=== PATIENT | male | born 1965 | race Caucasian/White ===

== ENCOUNTER → 2016-12-06 | Outpatient (REF) | payer BC ==
[~2016-12-06] MED LIST: ASPI1TAB PO; OMEP20CA3 PO; PARO-39 PO; SIMV20TA2 PO; VITA500T3 PO
[2016-12-06 14:43] LABS: FOLATE 8.7 NG/ML; VITAMIN B12 LEVEL 1782 PG/ML
== END ==
LOC: M LABNEURO 13:33
PROVIDERS: ATTEND Psychiatry & Neurology Neurology
DX: G60.9 Hereditary and idiopathic neuropathy, unspecified (principal)

== ENCOUNTER → 2017-01-22 | Outpatient (REF) | payer BC | LOC: M LAB REF 16:34 | PROVIDERS: ATTEND Nurse Practitioner Adult Health | DX: G61.1 Serum neuropathy (principal) ==

== ENCOUNTER → 2017-03-23 | Outpatient (CLI) | payer BC ==
[2017-03-23 18:48] LABS: ALBUMIN 3.9 GM/DL (3.2-5.2); ALBUMIN/GLOBULIN RATIO 1.22 (1.00-1.93); ALKALINE PHOSPHATASE 58 U/L (45-117); ALT/SGPT 80 U/L (12-78); ANION GAP 7 MEQ/L (8-16); AST/SGOT 45 U/L (15-37); BILIRUBIN,TOTAL 1.1 MG/DL (0.2-1.0); BLOOD UREA NITROGEN 12 MG/DL (7-18); CALCIUM LEVEL 8.9 MG/DL (8.5-10.1); CARBON DIOXIDE LEVEL 30 MEQ/L (21-32); CHLORIDE LEVEL 105 MEQ/L (98-107); CREATININE FOR GFR 1.06 MG/DL (0.70-1.30); GLOMERULAR FILTRATION RATE > 60.0 (>56); GLUCOSE, FASTING 91 MG/DL (70-105); POTASSIUM SERUM 4.4 MEQ/L (3.5-5.1); SODIUM LEVEL 142 MEQ/L (136-145); TOTAL PROTEIN 7.1 GM/DL (6.4-8.2)
== END ==
LOC: M WUC 12:11
PROVIDERS: ATTEND Physician Assistant
DX: R73.9 Hyperglycemia, unspecified (principal); R94.5 Abnormal results of liver function studies

== ENCOUNTER → 2017-04-02 | Outpatient (REF) | payer BC ==
[2017-04-02 12:33] LABS: FERRITIN 251 NG/ML (26-388); PERCENT SATURATION 36.9 % (19.7-37.4); TOTAL IRON BINDING CAPACITY 350 UG/DL (250-450)
== END ==
LOC: M SFHCPLAZ 11:03
PROVIDERS: ATTEND Physician Assistant
DX: R94.5 Abnormal results of liver function studies (principal)

== ENCOUNTER → 2017-04-04 | Outpatient (CLI) | payer BC ==
--- NOTE | 2017-04-04 09:47 | REP ---
Right upper quadrant sonography: History: Elevated liver function studies. Comparison study: No comparison study. Findings: Scanning through the right upper quadrant of the abdomen demonstrates a normal sized, thin-walled gallbladder without evidence of stone or polyp. Common bile duct is normal measuring zero point cm in greatest diameter. They are are two cysts in the left lobe adjacent one another 3.1 x 2.3 x 1.9 cm with a 1.3 cm cyst adjacent to this. No other focal liver lesion is seen. Liver size is normal. No pancreatic abnormality is observed. No right renal abnormality is seen. There is no evidence of ascites. The right kidney measures of the 11.0 x 6.0 x 4.7 cm. Impression: Small simple cysts in the left lobe of the liver, otherwise negative right upper quadrant sonography. Signed by Cesar Adams MD 04/04/2017 09:38 A
== END ==
LOC: M WHC 07:59
PROVIDERS: ATTEND Physician Assistant
DX: R94.5 Abnormal results of liver function studies (principal)

== ENCOUNTER 2017-08-28 16:11 | Emergency (ER) | payer BC ==
[~2017-08-28] VITALS: Ht 175.3 cm; Wt 100.0 kg
[~2017-08-28 16:11] MED LIST changes: -PARO-39 PO; +PARO20TA4 PO
[2017-08-28] MEDS ORDERED: NS 1,000 ML IV SCH (16:51)
[2017-08-28] MEDS ORDERED: ONDANSETRON 4MG/2ML VIAL (J2405) IV ONE (17:00)
[2017-08-28] MEDS ORDERED: MORPHINE 2 MG/ML 1ML SYRINGE IV PRN (17:00)
[2017-08-28 17:15] LABS: BASO # 0.1 10^3/uL (0.0-0.2); BASO % 0.5 % (0.0-1.0); EOS # 0.5 10^3/uL (0.0-0.50); EOS % 4.1 % (0.0-3.0); IMMATURE GRANULOCYTE % 0.5 % (0-0); LYMPH # 2.9 10^3/uL (1.5-4.5); LYMPH % 26.5 % (24.0-44.0); MEAN CORPUSCULAR HEMOGLOBIN 30.2 pg (27.0-33.0); MEAN CORPUSCULAR HGB CONC 33.6 g/dl (32.0-36.5); MEAN CORPUSCULAR VOLUME 89.9 fl (80.0-96.0); MONO # 0.7 10^3/uL (0.0-0.8); MONO % 6.7 % (0.0-5.0); NEUTROPHILS # 6.8 10^3/uL (1.8-7.7); NEUTROPHILS % 61.7 % (36.0-66.0); PLATELET COUNT, AUTOMATED 214 10^3/uL (150-450); RED CELL DISTRIBUTION WIDTH 12.9 % (11.5-14.5)
[2017-08-28 17:42] LABS: ALBUMIN 3.5 GM/DL (3.2-5.2); ALBUMIN/GLOBULIN RATIO 0.97 (1.00-1.93); ALKALINE PHOSPHATASE 56 U/L (45-117); ALT/SGPT 58 U/L (12-78); ANION GAP 4 MEQ/L (8-16); AST/SGOT 32 U/L (15-37); BILIRUBIN,DIRECT 0.2 MG/DL (0.0-0.2); BILIRUBIN,TOTAL 0.8 MG/DL (0.2-1.0); BLOOD UREA NITROGEN 12 MG/DL (7-18); CALCIUM LEVEL 8.5 MG/DL (8.5-10.1); CARBON DIOXIDE LEVEL 29 MEQ/L (21-32); CHLORIDE LEVEL 107 MEQ/L (98-107); CREATININE FOR GFR 0.84 MG/DL (0.70-1.30); GLOMERULAR FILTRATION RATE > 60.0 (>56); GLUCOSE, FASTING 102 MG/DL (70-105); POTASSIUM SERUM 3.8 MEQ/L (3.5-5.1); SODIUM LEVEL 140 MEQ/L (136-145); TOTAL PROTEIN 7.1 GM/DL (6.4-8.2)
--- NOTE | 2017-08-28 18:22 | REP ---
REASON FOR EXAM: Left sided pain. PRIORS: Right upper quadrant ultrasound of 04/04/2017 showed a liver cyst. Emphysematous changes are seen throughout the lung bases. There are no pleural or pericardial effusions. Limited evaluation of the solid intraabdominal organs and gallbladder show no gross abnormalities. Note is made of a simple cyst in the lateral segment of the left lobe of the liver. Limited evaluation of the pancreas shows thickening of the left lateroconal fascia and thickening of Zuckerkandl fascia on the left along with fatty infiltration around the tail of the pancreas and the left anterior pararenal space. There is no nephroureterolithiasis, hydronephrosis, or hydroureter. Arising from the inferior pole of the left kidney there is a 6.4 cm sized low density structure which has water Hounsfield unit readings and shows no evidence of septations or mural nodules and consistent with a simple cyst. Limited evaluation of the abdominal aorta and paraaortic regions show no gross abnormality. There is no evidence of free fluid of free air in the abdomen. CT PELVIS: The bowel loops and their mesenteries are within normal limits. There is no pelvic mass or adenopathy. There is no evidence of free pelvic fluid or air. Bone window technique throughout the examination shows the osseous structures to be within normal limits for the patients age. IMPRESSION: 1. There is evidence of pancreatitis involving the tail of the pancreas with related findings as described above. 2. Simple left renal cyst. 3. Simple liver cyst. 4. Lung bases show emphysematous changes. Signed by Cody Shannon DO 08/28/2017 07:54 P
[2017-08-28 18:26] VITALS: BP 140/76
[2017-08-28] MEDS ORDERED: ZOFR4TAB3 PO (18:31)
[2017-08-28] MEDS ORDERED: PERC5TAB12 PO (18:31)
--- NOTE | 2017-08-29 07:40 | ECGEPIP ---
Stationary ECG Study [facility] - ED Test Date: 2017-08-28 Pat Name: RON KRAUS Department: Room: - Gender: M [employer]st: ct : 1965 Requested By: PEDRO LUIS MARTINEZ PA-C. Order Number: [id number] Reading MD: Kelly Linares Measurements Intervals Jenison Rate: 59 P: 20 WY: 137 QRS: 0 QRSD: 109 T: 24 QT: 435 QTc: 434 Interpretive Statements SINUS BRADYCARDIA NO PRIOR FOR COMPARISON Electronically Signed On 08-29-2017 7:40:46 EDT by Kelly Linares
== END 2017-08-28 18:46 | disposition home or self-care (01) ==
LOC: M ED 16:11
DX: K85.90 Acute pancreatitis without necrosis or infection, unspecified (principal); I51.9 Heart disease, unspecified; E78.5 Hyperlipidemia, unspecified; K21.9 Gastro-esophageal reflux disease without esophagitis; Z79.899 Other long term (current) drug therapy; Z79.82 Long term (current) use of aspirin; Z87.891 Personal history of nicotine dependence
CPT/HCPCS: 74176; 80048; 80076; 82550; 82553; 83690; 85025; 93005; 93041; 96361; 96374; 96375; 99284; J2405

== ENCOUNTER → 2017-10-31 | Outpatient (CLI) | payer BC ==
[~2017-10-31] MED LIST changes: +PERC5TAB12 PO; +ZOFR4TAB3 PO
[2017-10-31 13:42] LABS: BASO # 0.1 10^3/uL (0.0-0.2); BASO % 0.6 % (0.0-1.0); EOS # 0.6 10^3/uL (0.0-0.50); EOS % 5.8 % (0.0-3.0); IMMATURE GRANULOCYTE % 0.4 % (0-0); LYMPH # 3.8 10^3/uL (1.5-4.5); LYMPH % 36.8 % (24.0-44.0); MEAN CORPUSCULAR HEMOGLOBIN 30.1 pg (27.0-33.0); MEAN CORPUSCULAR HGB CONC 32.9 g/dl (32.0-36.5); MEAN CORPUSCULAR VOLUME 91.3 fl (80.0-96.0); MONO # 0.7 10^3/uL (0.0-0.8); MONO % 6.3 % (0.0-5.0); NEUTROPHILS # 5.2 10^3/uL (1.8-7.7); NEUTROPHILS % 50.1 % (36.0-66.0); PLATELET COUNT, AUTOMATED 258 10^3/uL (150-450); RED CELL DISTRIBUTION WIDTH 12.9 % (11.5-14.5); WHITE BLOOD COUNT 10.3 10^3/uL (4.0-10.0)
[2017-10-31 14:02] LABS: ALBUMIN 4.1 GM/DL (3.2-5.2); ALBUMIN/GLOBULIN RATIO 1.21 (1.00-1.93); ALKALINE PHOSPHATASE 78 U/L (45-117); ALT/SGPT 59 U/L (12-78); ANION GAP 7 MEQ/L (8-16); AST/SGOT 30 U/L (7-37); BILIRUBIN,TOTAL 0.6 MG/DL (0.2-1.0); BLOOD UREA NITROGEN 15 MG/DL (7-18); CALCIUM LEVEL 9.3 MG/DL (8.5-10.1); CARBON DIOXIDE LEVEL 30 MEQ/L (21-32); CHLORIDE LEVEL 104 MEQ/L (98-107); CREATININE FOR GFR 1.12 MG/DL (0.70-1.30); GLOMERULAR FILTRATION RATE > 60.0 (>56); GLUCOSE, FASTING 115 MG/DL (70-105); PERCENT SATURATION 24.5 % (19.7-50.0); POTASSIUM SERUM 4.6 MEQ/L (3.5-5.1); SODIUM LEVEL 141 MEQ/L (136-145); TOTAL IRON BINDING CAPACITY 326 UG/DL (250-450); TOTAL PROTEIN 7.5 GM/DL (6.4-8.2)
== END ==
LOC: M WUC 10:50
PROVIDERS: ATTEND Physician Assistant
DX: K64.9 Unspecified hemorrhoids (principal)

== ENCOUNTER → 2017-11-19 | Outpatient (REF) | payer BC ==
[2017-11-19 17:19] LABS: FERRITIN 313 NG/ML (26-388); IRON (FE) 54 UG/DL (65-175); PERCENT SATURATION 18.1 % (19.7-50.0); TOTAL IRON BINDING CAPACITY 298 UG/DL (250-450)
[2017-11-21 09:19] LABS: ALPHA FETOPROTEIN TUMOR QUANT 3.8 NG/ML (<8.1)
[2017-11-21 09:20] LABS: HEPATITIS B SURFACE ANTIBODY NEGATIVE (POSITIVE)
[2017-11-21 09:57] LABS: HEP C VIRUS AB SCREEN MEDICARE 0.1 INDEX (<0.8)
[2017-11-25 08:10] LABS: ANTI-MITOCHONDRIAL ANTIBODY 40.4 Units (0.0-20.0); ANTINUCLEAR ANTIBODIES DIRECT Negative (Negative); CERULOPLASMIN 22.5 mg/dL (16.0-31.0); HEPATITIS A IgG TOTAL Negative (Negative); HEPATITIS B CORE ANTIBODY IGG Negative (Negative); IgA SERUM (part of Subclasses) 252 mg/dL (90-386); LIVER-KIDNEY MICROSOMAL ABY 1.9 Units (0.0-20.0); TISSUE TRANSGLUTAMINASE IgA <2 U/mL (0-3)
[2017-11-25 08:10] LABS: ANTI-SMOOTH MUSCLE ANTIBODY 19 Units (0-19)
== END ==
LOC: M LABDRAW1 15:14
DX: R93.3 Abnormal findings on diagnostic imaging of other parts of digestive tract (principal)
CPT/HCPCS: 83550

== ENCOUNTER → 2017-12-25 | Outpatient (CLI) | payer BC ==
[2017-12-25 21:07] LABS: ALBUMIN/GLOBULIN RATIO 1.18 (1.00-1.93); ALKALINE PHOSPHATASE 70 U/L (45-117); ALT/SGPT 78 U/L (12-78); ANION GAP 8 MEQ/L (8-16); AST/SGOT 35 U/L (7-37); BILIRUBIN,TOTAL 0.6 MG/DL (0.2-1.0); BLOOD UREA NITROGEN 12 MG/DL (7-18); CALCIUM LEVEL 8.8 MG/DL (8.5-10.1); CARBON DIOXIDE LEVEL 31 MEQ/L (21-32); CHLORIDE LEVEL 103 MEQ/L (98-107); CREATININE FOR GFR 0.97 MG/DL (0.70-1.30); GLOMERULAR FILTRATION RATE > 60.0 (>56); GLUCOSE, FASTING 104 MG/DL (70-100); POTASSIUM SERUM 4.4 MEQ/L (3.5-5.1); SODIUM LEVEL 142 MEQ/L (136-145); TOTAL PROTEIN 7.4 GM/DL (6.4-8.2)
== END ==
LOC: M WUC 15:58
DX: R94.5 Abnormal results of liver function studies (principal)
CPT/HCPCS: 80053

== ENCOUNTER → 2017-12-29 | Outpatient (REF) | payer BC ==
[2017-12-29 13:48] LABS: BASO % 0.4 % (0.0-1.0); EOS # 0.4 10^3/uL (0.0-0.50); EOS % 4.1 % (0.0-3.0); HEMATOCRIT 41.6 % (42.0-52.0); HEMOGLOBIN 13.9 g/dl (14.0-18.0); IMMATURE GRANULOCYTE % 0.2 % (0-3.0); LYMPH # 3.8 10^3/uL (1.5-4.5); LYMPH % 41.8 % (24.0-44.0); MEAN CORPUSCULAR HEMOGLOBIN 30.1 pg (27.0-33.0); MEAN CORPUSCULAR HGB CONC 33.4 g/dl (32.0-36.5); MONO # 0.6 10^3/uL (0.0-0.8); MONO % 6.2 % (0.0-5.0); NEUTROPHILS # 4.3 10^3/uL (1.8-7.7); NEUTROPHILS % 47.3 % (36.0-66.0); PLATELET COUNT, AUTOMATED 264 10^3/uL (150-450); RED BLOOD COUNT 4.62 10^6/uL (4.30-6.10); WHITE BLOOD COUNT 9.1 10^3/uL (4.0-10.0)
[2017-12-31 14:13] LABS: ANTI CENTROMERE ANTIBODY <0.2 AI (0.0-0.9); ANTI DOUBLE STRAND-DNA AB 1 IU/mL (0-9); ANTI-SINGLE STRAND DNA Ab IgG 32 EU (0-19)
== END ==
LOC: M SFHCPLAZ 10:58
DX: R76.8 Other specified abnormal immunological findings in serum (principal); K21.9 Gastro-esophageal reflux disease without esophagitis
CPT/HCPCS: 86255

== ENCOUNTER → 2018-01-02 | Outpatient (CLI) | payer BC | LOC: M RAD 08:00 | DX: R76.8 Other specified abnormal immunological findings in serum (principal); K76.0 Fatty (change of) liver, not elsewhere classified; K76.89 Other specified diseases of liver | CPT/HCPCS: 76705 ==

== ENCOUNTER → 2018-01-28 | Outpatient (REF) | payer BC | LOC: M LAB REF 16:28 | DX: L02.01 Cutaneous abscess of face (principal) | CPT/HCPCS: 87070; 87186 ==

== ENCOUNTER → 2018-05-29 | Outpatient (CLI) | payer BC ==
[2018-05-29 19:36] LABS: PSA SCREENING 1.74 NG/ML (< 4.0)
== END ==
LOC: M WUC 17:11
DX: Z12.5 Encounter for screening for malignant neoplasm of prostate (principal)
CPT/HCPCS: G0103

== ENCOUNTER → 2018-11-25 | Outpatient (REF) | payer BC ==
[~2018-11-25] MED LIST changes: +DULO1CAP PO; +ZOFR4TAB14 PO; -ZOFR4TAB3 PO
[2018-11-25 20:08] LABS: INFLUENZA A AMPLIFICATION NEGATIVE (NEGATIVE); INFLUENZA B AMPLIFICATION NEGATIVE (NEGATIVE)
== END ==
LOC: M LAB REF 10:00
PROVIDERS: ATTEND Physician Assistant
DX: Z11.59 Encounter for screening for other viral diseases (principal)

== ENCOUNTER → 2019-03-28 | Outpatient (CLI) | payer BC ==
[~2019-03-28] MED LIST changes: -ASPI1TAB PO; +ASPI81TA26 PO
[2019-03-28 18:06] LABS: ALBUMIN 3.9 GM/DL (3.2-5.2); ALT/SGPT 53 U/L (12-78); BILIRUBIN,TOTAL 0.6 MG/DL (0.2-1.0); BLOOD UREA NITROGEN 19 MG/DL (7-18); CARBON DIOXIDE LEVEL 28 MEQ/L (21-32); CHLORIDE LEVEL 107 MEQ/L (98-107); CHOLESTEROL LEVEL 180 MG/DL (<200); CHOLESTEROL RISK RATIO 3.529 (<5); CREATININE FOR GFR 0.98 MG/DL (0.70-1.30); GLOMERULAR FILTRATION RATE > 60.0 (>56); GLUCOSE, FASTING 113 MG/DL (70-100); HDL CHOLESTEROL 51 MG/DL (>40); LDL CHOLESTEROL 99 MG/DL (<100); NON-HDL-C 129 MG/DL; POTASSIUM SERUM 4.7 MEQ/L (3.5-5.1); SODIUM LEVEL 142 MEQ/L (136-145); TOTAL PROTEIN 7.3 GM/DL (6.4-8.2); TRIGLYCERIDES LEVEL 151 MG/DL (<150)
== END ==
LOC: M WUC 08:08
PROVIDERS: ATTEND Internal Medicine
DX: E78.5 Hyperlipidemia, unspecified (principal); R74.0 Nonspecific elevation of levels of transaminase and lactic acid dehydrogenase [LDH]; R73.01 Impaired fasting glucose

== ENCOUNTER → 2019-06-09 | Outpatient (CLI) | payer BC ==
[~2019-06-09] MED LIST changes: +CYAN500T8 PO; -DULO1CAP PO; +DULO1CAP4 PO; -OMEP20CA3 PO; +OMEP20CA4 PO; -VITA500T3 PO
== END ==
LOC: M WUC 14:40
PROVIDERS: ATTEND Nurse Practitioner Family
DX: R97.20 Elevated prostate specific antigen [PSA] (principal)

== ENCOUNTER → 2019-10-05 | Outpatient (CLI) | payer BC ==
[2019-10-05 10:16] LABS: HEMOGLOBIN A1c 6.2 %
[2019-10-05 10:35] LABS: ALT/SGPT 37 U/L (12-78); BILIRUBIN,TOTAL 0.7 MG/DL (0.2-1.0); BLOOD UREA NITROGEN 15 MG/DL (7-18); CALCIUM LEVEL 9.3 MG/DL (8.5-10.1); CARBON DIOXIDE LEVEL 32 MEQ/L (21-32); CHLORIDE LEVEL 105 MEQ/L (98-107); CHOLESTEROL LEVEL 181 MG/DL (<200); CHOLESTEROL RISK RATIO 3.016 (<5); CREATININE FOR GFR 1.09 MG/DL (0.70-1.30); GLOMERULAR FILTRATION RATE > 60.0 (>56); GLUCOSE, FASTING 107 MG/DL (70-100); HDL CHOLESTEROL 60 MG/DL (>40); LDL CHOLESTEROL 96 MG/DL (<100); NON-HDL-C 121 MG/DL; SODIUM LEVEL 141 MEQ/L (136-145); TOTAL PROTEIN 7.2 GM/DL (6.4-8.2); TRIGLYCERIDES LEVEL 126 MG/DL (<150)
== END ==
LOC: M WUC 08:15
PROVIDERS: ATTEND Internal Medicine
DX: E78.5 Hyperlipidemia, unspecified (principal); R74.0 Nonspecific elevation of levels of transaminase and lactic acid dehydrogenase [LDH]; R73.01 Impaired fasting glucose

== ENCOUNTER → 2020-06-07 | Outpatient (CLI) | payer BC ==
[~2020-06-07] MED LIST changes: +OMEP1CAP73 PO; -OMEP20CA4 PO; -SIMV20TA2 PO; +SIMV20TA22 PO
== END ==
LOC: M WUC 14:50
PROVIDERS: ATTEND Nurse Practitioner Family
DX: R97.20 Elevated prostate specific antigen [PSA] (principal)

== ENCOUNTER → 2020-10-04 | Outpatient (CLI) | payer BC ==
[2020-10-04 10:15] LABS: ALBUMIN 4.1 GM/DL (3.2-5.2); ALT/SGPT 59 U/L (12-78); BILIRUBIN,TOTAL 1.2 MG/DL (0.2-1.0); BLOOD UREA NITROGEN 13 MG/DL (7-18); CALCIUM LEVEL 9.2 MG/DL (8.5-10.1); CARBON DIOXIDE LEVEL 32 MEQ/L (21-32); CHLORIDE LEVEL 103 MEQ/L (98-107); CHOLESTEROL LEVEL 183 MG/DL (<200); CHOLESTEROL RISK RATIO 3.519 (<5); CREATININE FOR GFR 1.05 MG/DL (0.70-1.30); GLOMERULAR FILTRATION RATE > 60.0 (>56); GLUCOSE, FASTING 98 MG/DL (70-100); HDL CHOLESTEROL 52 MG/DL (>40); LDL CHOLESTEROL 95 MG/DL (<100); NON-HDL-C 131 MG/DL; POTASSIUM SERUM 4.9 MEQ/L (3.5-5.1); SODIUM LEVEL 140 MEQ/L (136-145); TOTAL PROTEIN 7.4 GM/DL (6.4-8.2); TRIGLYCERIDES LEVEL 180 MG/DL (<150); URIC ACID 6.2 MG/DL (3.5-7.2)
[2020-10-04 11:03] LABS: HEMOGLOBIN A1c 5.7 %
== END ==
LOC: M WUC 08:03
PROVIDERS: ATTEND Internal Medicine
DX: E78.5 Hyperlipidemia, unspecified (principal); R73.01 Impaired fasting glucose; M10.9 Gout, unspecified

== ENCOUNTER → 2021-04-19 | Outpatient (CLI) | payer BC ==
[~2021-04-19] MED LIST changes: +CYAN500T14 PO; -CYAN500T8 PO
[2021-04-19 12:50] LABS: ALBUMIN 3.9 GM/DL (3.2-5.2); ALT/SGPT 75 U/L (12-78); BILIRUBIN,TOTAL 0.9 MG/DL (0.2-1.0); BLOOD UREA NITROGEN 11 MG/DL (7-18); CALCIUM LEVEL 9.6 MG/DL (8.5-10.1); CARBON DIOXIDE LEVEL 29 MEQ/L (21-32); CHLORIDE LEVEL 104 MEQ/L (98-107); CHOLESTEROL LEVEL 162 MG/DL (<200); CREATININE FOR GFR 0.96 MG/DL (0.70-1.30); GLOMERULAR FILTRATION RATE > 60.0 (>56); GLUCOSE, FASTING 114 MG/DL (70-100); HDL CHOLESTEROL 54 MG/DL (>40); LDL CHOLESTEROL 79 MG/DL (<100); NON-HDL-C 108 MG/DL; POTASSIUM SERUM 4.6 MEQ/L (3.5-5.1); SODIUM LEVEL 138 MEQ/L (136-145); TOTAL PROTEIN 7.1 GM/DL (6.4-8.2); TRIGLYCERIDES LEVEL 143 MG/DL (<150)
== END ==
LOC: M WUC 08:09
PROVIDERS: ATTEND Internal Medicine
DX: E78.5 Hyperlipidemia, unspecified (principal)

== ENCOUNTER → 2021-08-29 | Outpatient (CLI) | payer BC | LOC: M WUC 09:07 | PROVIDERS: ATTEND Nurse Practitioner Family | DX: Z12.5 Encounter for screening for malignant neoplasm of prostate (principal) ==

== ENCOUNTER → 2021-11-01 | Outpatient (CLI) | payer BC ==
[2021-11-01 10:23] LABS: ALBUMIN 3.9 GM/DL (3.2-5.2); ALT/SGPT 43 U/L (12-78); BILIRUBIN,TOTAL 0.9 MG/DL (0.2-1.0); BLOOD UREA NITROGEN 14 MG/DL (7-18); CALCIUM LEVEL 9.5 MG/DL (8.5-10.1); CARBON DIOXIDE LEVEL 33 MEQ/L (21-32); CHLORIDE LEVEL 104 MEQ/L (98-107); CHOLESTEROL LEVEL 184 MG/DL (<200); CHOLESTEROL RISK RATIO 3.471 (<5); CREATININE FOR GFR 0.99 MG/DL (0.70-1.30); GLOMERULAR FILTRATION RATE > 60.0 (>56); GLUCOSE, FASTING 113 MG/DL (70-100); HDL CHOLESTEROL 53 MG/DL (>40); LDL CHOLESTEROL 101 MG/DL (<100); NON-HDL-C 131 MG/DL; POTASSIUM SERUM 4.6 MEQ/L (3.5-5.1); SODIUM LEVEL 141 MEQ/L (136-145); TOTAL PROTEIN 7.5 GM/DL (6.4-8.2); TRIGLYCERIDES LEVEL 151 MG/DL (<150)
== END ==
LOC: M WUC 07:55
PROVIDERS: ATTEND Internal Medicine
DX: E78.5 Hyperlipidemia, unspecified (principal)

== ENCOUNTER 2022-04-07 18:11 | Emergency (ER) | payer BC ==
[~2022-04-07] VITALS: Ht 177.8 cm; Wt 110.0 kg
[2022-04-07] MEDS ORDERED: IBUPROFEN 800 MG TAB PO ONE (19:00)
[2022-04-07 19:52] VITALS: BP 129/62
== END 2022-04-07 19:52 | disposition home or self-care (01) ==
LOC: M ED 18:11
DX: M19.012 Primary osteoarthritis, left shoulder (principal); M75.52 Bursitis of left shoulder; E78.5 Hyperlipidemia, unspecified; F33.9 Major depressive disorder, recurrent, unspecified; F41.9 Anxiety disorder, unspecified; G47.33 Obstructive sleep apnea (adult) (pediatric); K21.9 Gastro-esophageal reflux disease without esophagitis; N42.9 Disorder of prostate, unspecified; Z99.89 Dependence on other enabling machines and devices; Z79.899 Other long term (current) drug therapy

== ENCOUNTER → 2022-04-17 | Outpatient (CLI) | payer BC | LOC: M SOG 11:01 | PROVIDERS: ATTEND Orthopaedic Surgery | DX: M79.622 Pain in left upper arm (principal) ==

== ENCOUNTER → 2022-04-30 | Outpatient (CLI) | payer BC | LOC: M WUC 11:33 | PROVIDERS: ATTEND Internal Medicine | DX: M25.512 Pain in left shoulder (principal) ==

== ENCOUNTER → 2022-09-26 | Outpatient (CLI) | payer BC | LOC: M WUC 10:05 | PROVIDERS: ATTEND Nurse Practitioner Family | DX: Z12.5 Encounter for screening for malignant neoplasm of prostate (principal) ==

== ENCOUNTER → 2022-11-29 | Outpatient (CLI) | payer BC ==
[2022-11-29 10:51] LABS: ALBUMIN 4.1 G/DL (3.2-5.2); ALKALINE PHOSPHATASE 55 U/L (46-116); ALT/SGPT 34 U/L (7.0-40); AST/SGOT 23 U/L (<34); BILIRUBIN,TOTAL 1.1 MG/DL (0.3-1.2); BLOOD UREA NITROGEN 16 MG/DL (9-23); CALCIUM LEVEL 9.8 MG/DL (8.5-10.1); CARBON DIOXIDE LEVEL 32 MMOL/L (20-31); CHLORIDE LEVEL 103 MMOL/L (98-107); CHOLESTEROL LEVEL 183 MG/DL (<200); CHOLESTEROL RISK RATIO 3.66 (<5); CREATININE FOR GFR 1.02 MG/DL (0.70-1.30); GLOMERULAR FILTRATION RATE > 60.0 (>56); GLUCOSE, FASTING 102 MG/DL (60-100); LDL CHOLESTEROL 100.2 MG/DL (<100); NON-HDL-C 133 MG/DL; POTASSIUM SERUM 4.7 MMOL/L (3.5-5.1); SODIUM LEVEL 139 MMOL/L (136-145); TOTAL PROTEIN 7.1 G/DL (5.7-8.2); TRIGLYCERIDES LEVEL 164 MG/DL (<150)
== END ==
LOC: M WUC 08:18
PROVIDERS: ATTEND Internal Medicine
DX: E78.5 Hyperlipidemia, unspecified (principal); R73.01 Impaired fasting glucose

== ENCOUNTER → 2023-06-02 | Outpatient (CLI) | payer BC ==
[2023-06-02 11:52] LABS: ALBUMIN 4.1 G/DL (3.2-5.2); ALKALINE PHOSPHATASE 49 U/L (46-116); ALT/SGPT 33 U/L (7.0-40); AST/SGOT 19 U/L (<34); BILIRUBIN,TOTAL 1.5 MG/DL (0.3-1.2); BLOOD UREA NITROGEN 13 MG/DL (9-23); CALCIUM LEVEL 9.1 MG/DL (8.3-10.6); CARBON DIOXIDE LEVEL 29 MMOL/L (20-31); CHLORIDE LEVEL 101 MMOL/L (98-107); CHOLESTEROL LEVEL 158 MG/DL (<200); CHOLESTEROL RISK RATIO 2.99 (<5); CREATININE FOR GFR 0.89 MG/DL (0.70-1.30); GLOMERULAR FILTRATION RATE > 60.0 (>49); GLUCOSE, FASTING 116 MG/DL (74-106); HDL CHOLESTEROL 52.8 MG/DL (>40); LDL CHOLESTEROL 71.6 MG/DL (<100); NON-HDL-C 105.2 MG/DL; POTASSIUM SERUM 4.5 MMOL/L (3.5-5.1); SODIUM LEVEL 140 MMOL/L (136-145); TRIGLYCERIDES LEVEL 168 MG/DL (<150)
== END ==
LOC: M WUC 08:41
PROVIDERS: ATTEND Internal Medicine
DX: E78.5 Hyperlipidemia, unspecified (principal); R73.01 Impaired fasting glucose

== ENCOUNTER → 2023-09-22 | Outpatient (CLI) | payer BC ==
[2023-09-22 13:03] LABS: HEMOGLOBIN 14.5 g/dl (13.5-17.5); MEAN CORPUSCULAR HEMOGLOBIN 29.8 pg (27.0-33.0); MEAN CORPUSCULAR HGB CONC 32.2 g/dl (32.0-36.5); MEAN CORPUSCULAR VOLUME 92.4 fl (80.0-96.0); PLATELET COUNT, AUTOMATED 258 10^3/uL (150-450); RED BLOOD COUNT 4.87 10^6/uL (4.30-6.10)
[2023-09-22 13:11] LABS: LIPASE 25 U/L (12-53)
[2023-09-22 13:12] LABS: AMYLASE 49 U/L (30-118)
[2023-09-22 13:13] LABS: ALKALINE PHOSPHATASE 56 U/L (46-116); ALT/SGPT 33 U/L (7.0-40); AST/SGOT 20 U/L (<34); BILIRUBIN,TOTAL 0.8 MG/DL (0.3-1.2); BLOOD UREA NITROGEN 17 MG/DL (9-23); CALCIUM LEVEL 9.4 MG/DL (8.3-10.6); CARBON DIOXIDE LEVEL 30 MMOL/L (20-31); CHLORIDE LEVEL 103 MMOL/L (98-107); CREATININE FOR GFR 0.85 MG/DL (0.70-1.30); GLOMERULAR FILTRATION RATE > 60.0 (>49); GLUCOSE, FASTING 101 MG/DL (74-106); POTASSIUM SERUM 4.8 MMOL/L (3.5-5.1); SODIUM LEVEL 140 MMOL/L (136-145); TOTAL PROTEIN 7.3 G/DL (5.7-8.2)
== END ==
LOC: M WUC 09:15
PROVIDERS: ATTEND Internal Medicine
DX: R10.13 Epigastric pain (principal); M54.9 Dorsalgia, unspecified

== ENCOUNTER → 2023-10-01 | Outpatient (CLI) | payer BC | LOC: M WUC 15:11 | PROVIDERS: ATTEND Internal Medicine | DX: M47.814 Spondylosis without myelopathy or radiculopathy, thoracic region (principal) ==

== ENCOUNTER → 2023-10-21 | Outpatient (REF) | payer BC | LOC: M LABWUC 16:41 | PROVIDERS: ATTEND Nurse Practitioner Family | DX: Z12.5 Encounter for screening for malignant neoplasm of prostate (principal) ==

== ENCOUNTER → 2023-10-28 | Outpatient (REF) | payer BC ==
[2023-10-28 16:44] LABS: BLOOD UREA NITROGEN 14 MG/DL (9-23); CALCIUM LEVEL 9.3 MG/DL (8.3-10.6); CARBON DIOXIDE LEVEL 31 MMOL/L (20-31); CHLORIDE LEVEL 101 MMOL/L (98-107); CREATININE FOR GFR 0.85 MG/DL (0.70-1.30); GLOMERULAR FILTRATION RATE > 60.0 (>49); GLUCOSE, FASTING 114 MG/DL (74-106); POTASSIUM SERUM 4.4 MMOL/L (3.5-5.1); SODIUM LEVEL 139 MMOL/L (136-145)
== END ==
LOC: M LABWUC 16:13
PROVIDERS: ATTEND Nurse Practitioner Family
DX: R31.21 Asymptomatic microscopic hematuria (principal)

== ENCOUNTER 2023-12-16 17:47 | Emergency (ER) | payer BC ==
[~2023-12-16] VITALS: Ht 177.8 cm; Wt 107.6 kg
[2023-12-16] MEDS ORDERED: SODIUM CHLORIDE 0.9% INJ 10 ML SYR IV PRN (19:50)
[2023-12-16 20:25] LABS: BASO % 0.1 % (0.0-1.0); HEMATOCRIT 42.8 % (42.0-52.0); HEMOGLOBIN 14.1 g/dl (13.5-17.5); LYMPH # 0.8 10^3/uL (1.5-5.0); LYMPH % 8.6 % (24.0-44.0); MEAN CORPUSCULAR HEMOGLOBIN 30.2 pg (27.0-33.0); MEAN CORPUSCULAR HGB CONC 32.9 g/dl (32.0-36.5); MEAN CORPUSCULAR VOLUME 91.6 fl (80.0-96.0); MONO # 0.1 10^3/uL (0.0-0.8); MONO % 0.7 % (2.0-8.0); NEUTROPHILS # 7.9 10^3/uL (1.5-8.5); NEUTROPHILS % 90.3 % (36.0-66.0); PLATELET COUNT, AUTOMATED 232 10^3/uL (150-450); RED BLOOD COUNT 4.67 10^6/uL (4.30-6.10); WHITE BLOOD COUNT 8.8 10^3/uL (4.0-10.0)
[2023-12-16 20:38] LABS: INR 1.07; PROTHROMBIN TIME 13.6 SECONDS (12.5-14.5)
[2023-12-16 20:49] LABS: LIPASE 42 U/L (12-53)
[2023-12-16 20:51] LABS: ALKALINE PHOSPHATASE 51 U/L (46-116); ALT/SGPT 53 U/L (7.0-40); AST/SGOT 35 U/L (<34); BILIRUBIN,DIRECT 0.3 MG/DL (<0.4); BILIRUBIN,TOTAL 0.9 MG/DL (0.3-1.2); BLOOD UREA NITROGEN 16 MG/DL (9-23); CALCIUM LEVEL 9.5 MG/DL (8.3-10.6); CARBON DIOXIDE LEVEL 27 MMOL/L (20-31); CHLORIDE LEVEL 103 MMOL/L (98-107); CREATININE FOR GFR 0.77 MG/DL (0.70-1.30); GLOMERULAR FILTRATION RATE > 60.0 (>49); GLUCOSE, FASTING 145 MG/DL (74-106); POTASSIUM SERUM 4.4 MMOL/L (3.5-5.1); SODIUM LEVEL 136 MMOL/L (136-145); TOTAL PROTEIN 7.5 G/DL (5.7-8.2)
[2023-12-16] MEDS ORDERED: NS 500 ML IV ONE (21:15)
[2023-12-16] MEDS ORDERED: AUGM12TA11 PO (23:49)
[2023-12-17 00:14] VITALS: BP 155/94; TEMP 97.6; O2SAT 97
== END 2023-12-17 00:24 | disposition home or self-care (01) ==
LOC: M ED 17:47
DX: K57.92 Diverticulitis of intestine, part unspecified, without perforation or abscess without bleeding (principal); K64.8 Other hemorrhoids; C25.1 Malignant neoplasm of body of pancreas; R00.0 Tachycardia, unspecified; I10 Essential (primary) hypertension; F17.210 Nicotine dependence, cigarettes, uncomplicated; F10.10 Alcohol abuse, uncomplicated; Z79.2 Long term (current) use of antibiotics; Z79.899 Other long term (current) drug therapy

== ENCOUNTER → 2023-12-19 | Outpatient (CLI) | payer BC ==
[~2023-12-19] MED LIST changes: +AUGM12TA11 PO
[2023-12-19 15:29] LABS: BASO % 0.1 % (0.0-1.0); EOS % 0.2 % (0.0-3.0); HEMOGLOBIN 14.2 g/dl (13.5-17.5); LYMPH # 2.9 10^3/uL (1.5-5.0); LYMPH % 27.8 % (24.0-44.0); MEAN CORPUSCULAR HEMOGLOBIN 30.4 pg (27.0-33.0); MEAN CORPUSCULAR VOLUME 92.1 fl (80.0-96.0); MONO # 0.2 10^3/uL (0.0-0.8); MONO % 1.6 % (2.0-8.0); NEUTROPHILS # 7.3 10^3/uL (1.5-8.5); PLATELET COUNT, AUTOMATED 206 10^3/uL (150-450); RED BLOOD COUNT 4.67 10^6/uL (4.30-6.10); WHITE BLOOD COUNT 10.4 10^3/uL (4.0-10.0)
[2023-12-19 16:21] LABS: ALBUMIN 3.8 G/DL (3.2-5.2); ALKALINE PHOSPHATASE 48 U/L (46-116); ALT/SGPT 63 U/L (7.0-40); AST/SGOT 47 U/L (<34); BILIRUBIN,TOTAL 1.5 MG/DL (0.3-1.2); BLOOD UREA NITROGEN 23 MG/DL (9-23); CA19-9 TUMOR MARKER,CARBOHYDRA 171.1 U/ML (<35.0); CALCIUM LEVEL 9.5 MG/DL (8.3-10.6); CARBON DIOXIDE LEVEL 30 MMOL/L (20-31); CARCINOEMBRYONIC ANTIGEN < 2.0 NG/ML (<2.5); CHLORIDE LEVEL 97 MMOL/L (98-107); CREATININE FOR GFR 0.84 MG/DL (0.70-1.30); GLOMERULAR FILTRATION RATE > 60.0 (>49); GLUCOSE, FASTING 136 MG/DL (74-106); POTASSIUM SERUM 4.3 MMOL/L (3.5-5.1); SODIUM LEVEL 133 MMOL/L (136-145); TOTAL PROTEIN 7.4 G/DL (5.7-8.2)
== END ==
LOC: M ONCR 13:54
PROVIDERS: ATTEND General Practice
DX: C25.2 Malignant neoplasm of tail of pancreas (principal); Z71.2 Person consulting for explanation of examination or test findings; Z79.899 Other long term (current) drug therapy; Z87.891 Personal history of nicotine dependence; Z92.21 Personal history of antineoplastic chemotherapy
CPT/HCPCS: 36415; 80053; 82378; 85025; 86301; G0463

== ENCOUNTER → 2023-12-22 | Outpatient (CLI) | payer BC ==
[2023-12-22 17:04] LABS: BASO % 0.3 % (0.0-1.0); EOS # 0.2 10^3/uL (0.0-0.5); EOS % 2.6 % (0.0-3.0); HEMATOCRIT 44.2 % (42.0-52.0); HEMOGLOBIN 14.5 g/dl (13.5-17.5); LYMPH % 34.9 % (24.0-44.0); MEAN CORPUSCULAR HEMOGLOBIN 29.9 pg (27.0-33.0); MEAN CORPUSCULAR HGB CONC 32.8 g/dl (32.0-36.5); MEAN CORPUSCULAR VOLUME 91.1 fl (80.0-96.0); MONO # 0.1 10^3/uL (0.0-0.8); MONO % 1.9 % (2.0-8.0); NEUTROPHILS # 3.5 10^3/uL (1.5-8.5); NEUTROPHILS % 59.4 % (36.0-66.0); PLATELET COUNT, AUTOMATED 150 10^3/uL (150-450); RED BLOOD COUNT 4.85 10^6/uL (4.30-6.10); WHITE BLOOD COUNT 5.8 10^3/uL (4.0-10.0)
[2023-12-22 17:26] LABS: ALBUMIN 3.6 G/DL (3.2-5.2); ALKALINE PHOSPHATASE 60 U/L (46-116); ALT/SGPT 58 U/L (7.0-40); AST/SGOT 29 U/L (<34); BILIRUBIN,TOTAL 0.9 MG/DL (0.3-1.2); BLOOD UREA NITROGEN 18 MG/DL (9-23); CALCIUM LEVEL 9.3 MG/DL (8.3-10.6); CARBON DIOXIDE LEVEL 30 MMOL/L (20-31); CHLORIDE LEVEL 97 MMOL/L (98-107); CREATININE FOR GFR 0.88 MG/DL (0.70-1.30); GLOMERULAR FILTRATION RATE > 60.0 (>49); GLUCOSE, FASTING 138 MG/DL (74-106); POTASSIUM SERUM 4.5 MMOL/L (3.5-5.1); SODIUM LEVEL 132 MMOL/L (136-145); TOTAL PROTEIN 7.2 G/DL (5.7-8.2)
== END ==
LOC: M WUC 12:12
PROVIDERS: ATTEND Internal Medicine
DX: C25.7 Malignant neoplasm of other parts of pancreas (principal)

== ENCOUNTER → 2024-01-16 | Outpatient (CLI) | payer BC ==
[2024-01-16 12:44] LABS: BASO # 0.1 10^3/uL (0.0-0.2); BASO % 1.3 % (0.0-1.0); EOS # 0.5 10^3/uL (0.0-0.5); HEMATOCRIT 41.6 % (42.0-52.0); HEMOGLOBIN 13.4 g/dl (13.5-17.5); LYMPH % 57.5 % (24.0-44.0); MEAN CORPUSCULAR HEMOGLOBIN 30.5 pg (27.0-33.0); MEAN CORPUSCULAR HGB CONC 32.2 g/dl (32.0-36.5); MEAN CORPUSCULAR VOLUME 94.8 fl (80.0-96.0); MONO # 1.1 10^3/uL (0.0-0.8); MONO % 20.4 % (2.0-8.0); NEUTROPHILS % 10.6 % (36.0-66.0); PLATELET COUNT, AUTOMATED 237 10^3/uL (150-450); RED BLOOD COUNT 4.39 10^6/uL (4.30-6.10); WHITE BLOOD COUNT 5.2 10^3/uL (4.0-10.0)
[2024-01-16 13:09] LABS: ALBUMIN 3.5 G/DL (3.2-5.2); ALKALINE PHOSPHATASE 59 U/L (46-116); ALT/SGPT 62 U/L (7.0-40); AST/SGOT 53 U/L (<34); BILIRUBIN,TOTAL 0.5 MG/DL (0.3-1.2); BLOOD UREA NITROGEN 10 MG/DL (9-23); CALCIUM LEVEL 9.3 MG/DL (8.3-10.6); CARBON DIOXIDE LEVEL 33 MMOL/L (20-31); CHLORIDE LEVEL 102 MMOL/L (98-107); CREATININE FOR GFR 0.89 MG/DL (0.70-1.30); GLOMERULAR FILTRATION RATE > 60.0 (>49); GLUCOSE, FASTING 124 MG/DL (74-106); POTASSIUM SERUM 5.1 MMOL/L (3.5-5.1); SODIUM LEVEL 137 MMOL/L (136-145); TOTAL PROTEIN 6.7 G/DL (5.7-8.2)
[2024-01-16 13:13] LABS: NEUTROPHILS # 0.6 10^3/uL (1.5-8.5)
== END ==
LOC: M WUC 11:13
PROVIDERS: ATTEND Internal Medicine Medical Oncology
DX: C25.2 Malignant neoplasm of tail of pancreas (principal)

== ENCOUNTER → 2024-02-03 | Outpatient (REF) | payer BC ==
[2024-02-03 18:56] LABS: HEMOGLOBIN 13.3 g/dl (13.5-17.5); MEAN CORPUSCULAR HEMOGLOBIN 30.7 pg (27.0-33.0); MEAN CORPUSCULAR HGB CONC 31.7 g/dl (32.0-36.5); RED BLOOD COUNT 4.33 10^6/uL (4.30-6.10); WHITE BLOOD COUNT 19.2 10^3/uL (4.0-10.0)
[2024-02-03 19:17] LABS: ALBUMIN 3.6 G/DL (3.2-5.2); ALKALINE PHOSPHATASE 105 U/L (46-116); ALT/SGPT 45 U/L (7.0-40); AST/SGOT 37 U/L (<34); BILIRUBIN,TOTAL 0.4 MG/DL (0.3-1.2); BLOOD UREA NITROGEN 9 MG/DL (9-23); CALCIUM LEVEL 9.2 MG/DL (8.3-10.6); CARBON DIOXIDE LEVEL 32 MMOL/L (20-31); CHLORIDE LEVEL 104 MMOL/L (98-107); CREATININE FOR GFR 0.89 MG/DL (0.70-1.30); GLOMERULAR FILTRATION RATE > 60.0 (>49); GLUCOSE, FASTING 156 MG/DL (74-106); POTASSIUM SERUM 4.3 MMOL/L (3.5-5.1); SODIUM LEVEL 141 MMOL/L (136-145); TOTAL PROTEIN 6.6 G/DL (5.7-8.2)
[2024-02-03 19:18] LABS: PLATELET COUNT, AUTOMATED 91 10^3/uL (150-450)
[2024-02-03 19:24] LABS: ANISOCYTOSIS 1+; EOSINOPHILS 2 % (0-3); LYMPHOCYTES 19 % (16-44); METAMYELOCYTES 2 % (0-0); MONOCYTES 4 % (0-5); NEUTROPHILS 67 % (28-66); PLATELET ESTIMATE DECREASED (NORMAL)
== END ==
LOC: M LABWUC 16:35
PROVIDERS: ATTEND Internal Medicine Medical Oncology
DX: C25.2 Malignant neoplasm of tail of pancreas (principal)

== ENCOUNTER → 2024-02-19 | Outpatient (REF) | payer BC ==
[2024-02-19 17:36] LABS: BASO # 0.1 10^3/uL (0.0-0.2); BASO % 0.9 % (0.0-1.0); EOS # 0.1 10^3/uL (0.0-0.5); EOS % 1.7 % (0.0-3.0); HEMATOCRIT 36.4 % (42.0-52.0); HEMOGLOBIN 11.8 g/dl (13.5-17.5); LYMPH # 2.5 10^3/uL (1.5-5.0); LYMPH % 45.5 % (24.0-44.0); MEAN CORPUSCULAR HEMOGLOBIN 30.6 pg (27.0-33.0); MEAN CORPUSCULAR HGB CONC 32.4 g/dl (32.0-36.5); MEAN CORPUSCULAR VOLUME 94.5 fl (80.0-96.0); MONO # 0.3 10^3/uL (0.0-0.8); NEUTROPHILS # 2.5 10^3/uL (1.5-8.5); NEUTROPHILS % 46.7 % (36.0-66.0); PLATELET COUNT, AUTOMATED 125 10^3/uL (150-450); RED BLOOD COUNT 3.85 10^6/uL (4.30-6.10); WHITE BLOOD COUNT 5.4 10^3/uL (4.0-10.0)
[2024-02-19 17:54] LABS: ALBUMIN 3.3 G/DL (3.2-5.2); ALKALINE PHOSPHATASE 76 U/L (46-116); ALT/SGPT 62 U/L (7.0-40); AST/SGOT 36 U/L (<34); BILIRUBIN,TOTAL 0.4 MG/DL (0.3-1.2); BLOOD UREA NITROGEN 11 MG/DL (9-23); CALCIUM LEVEL 8.9 MG/DL (8.3-10.6); CARBON DIOXIDE LEVEL 30 MMOL/L (20-31); CHLORIDE LEVEL 104 MMOL/L (98-107); GLOMERULAR FILTRATION RATE > 60.0 (>49); GLUCOSE, FASTING 156 MG/DL (74-106); POTASSIUM SERUM 4.2 MMOL/L (3.5-5.1); SODIUM LEVEL 140 MMOL/L (136-145); TOTAL PROTEIN 6.3 G/DL (5.7-8.2)
[2024-02-19 18:16] LABS: CA19-9 TUMOR MARKER,CARBOHYDRA 30.6 U/ML (<35.0)
== END ==
LOC: M LABWUC 17:09
PROVIDERS: ATTEND Internal Medicine Medical Oncology
DX: C25.2 Malignant neoplasm of tail of pancreas (principal)

== ENCOUNTER → 2024-03-15 | Outpatient (CLI) | payer BC ==
[2024-03-15 14:07] LABS: BASO # 0.1 10^3/uL (0.0-0.2); BASO % 0.6 % (0.0-1.0); EOS # 0.2 10^3/uL (0.0-0.5); EOS % 1.3 % (0.0-3.0); HEMOGLOBIN 12.1 g/dl (13.5-17.5); LYMPH % 17.9 % (24.0-44.0); MEAN CORPUSCULAR HEMOGLOBIN 32.5 pg (27.0-33.0); MEAN CORPUSCULAR HGB CONC 32.7 g/dl (32.0-36.5); MEAN CORPUSCULAR VOLUME 99.5 fl (80.0-96.0); NEUTROPHILS # 11.6 10^3/uL (1.5-8.5); PLATELET COUNT, AUTOMATED 145 10^3/uL (150-450); RED BLOOD COUNT 3.72 10^6/uL (4.30-6.10); WHITE BLOOD COUNT 16.6 10^3/uL (4.0-10.0)
[2024-03-15 14:38] LABS: ALBUMIN 3.3 G/DL (3.2-5.2); ALKALINE PHOSPHATASE 93 U/L (46-116); ALT/SGPT 52 U/L (7.0-40); AST/SGOT 62 U/L (<34); BILIRUBIN,TOTAL 0.5 MG/DL (0.3-1.2); BLOOD UREA NITROGEN 11 MG/DL (9-23); CALCIUM LEVEL 8.5 MG/DL (8.3-10.6); CARBON DIOXIDE LEVEL 29 MMOL/L (20-31); CHLORIDE LEVEL 102 MMOL/L (98-107); CREATININE FOR GFR 0.67 MG/DL (0.70-1.30); GLOMERULAR FILTRATION RATE > 60.0 (>49); GLUCOSE, FASTING 169 MG/DL (74-106); POTASSIUM SERUM 4.3 MMOL/L (3.5-5.1); SODIUM LEVEL 139 MMOL/L (136-145); TOTAL PROTEIN 6.6 G/DL (5.7-8.2)
[2024-03-15 14:57] LABS: CA19-9 TUMOR MARKER,CARBOHYDRA 37.1 U/ML (<35.0)
== END ==
LOC: M WUC 09:14
PROVIDERS: ATTEND Internal Medicine Medical Oncology
DX: C25.2 Malignant neoplasm of tail of pancreas (principal)

== ENCOUNTER → 2024-03-29 | Outpatient (CLI) | payer BC ==
[2024-03-29 10:26] LABS: BASO # 0.1 10^3/uL (0.0-0.2); BASO % 0.8 % (0.0-1.0); EOS # 0.2 10^3/uL (0.0-0.5); EOS % 1.6 % (0.0-3.0); HEMATOCRIT 38.3 % (42.0-52.0); HEMOGLOBIN 12.3 g/dl (13.5-17.5); LYMPH # 2.2 10^3/uL (1.5-5.0); LYMPH % 16.7 % (24.0-44.0); MEAN CORPUSCULAR HEMOGLOBIN 31.9 pg (27.0-33.0); MEAN CORPUSCULAR HGB CONC 32.1 g/dl (32.0-36.5); MEAN CORPUSCULAR VOLUME 99.5 fl (80.0-96.0); MONO # 0.9 10^3/uL (0.0-0.8); MONO % 6.6 % (2.0-8.0); NEUTROPHILS # 9.8 10^3/uL (1.5-8.5); NEUTROPHILS % 73.2 % (36.0-66.0); RED BLOOD COUNT 3.85 10^6/uL (4.30-6.10); WHITE BLOOD COUNT 13.4 10^3/uL (4.0-10.0)
[2024-03-29 10:49] LABS: ALBUMIN 3.5 G/DL (3.2-5.2); ALKALINE PHOSPHATASE 119 U/L (46-116); ALT/SGPT 64 U/L (7.0-40); AST/SGOT 50 U/L (<34); BILIRUBIN,TOTAL 0.7 MG/DL (0.3-1.2); BLOOD UREA NITROGEN 10 MG/DL (9-23); CALCIUM LEVEL 9.2 MG/DL (8.3-10.6); CARBON DIOXIDE LEVEL 29 MMOL/L (20-31); CHLORIDE LEVEL 101 MMOL/L (98-107); CREATININE FOR GFR 0.81 MG/DL (0.70-1.30); GLOMERULAR FILTRATION RATE > 60.0 (>49); GLUCOSE, FASTING 154 MG/DL (74-106); POTASSIUM SERUM 4.5 MMOL/L (3.5-5.1); SODIUM LEVEL 137 MMOL/L (136-145); TOTAL PROTEIN 6.7 G/DL (5.7-8.2)
[2024-03-29 10:59] LABS: PLATELET COUNT, AUTOMATED 73 10^3/uL (150-450)
[2024-03-29 11:06] LABS: CA19-9 TUMOR MARKER,CARBOHYDRA 30.4 U/ML (<35.0)
== END ==
LOC: M WUC 08:56
PROVIDERS: ATTEND Internal Medicine Medical Oncology
DX: C25.2 Malignant neoplasm of tail of pancreas (principal)

== ENCOUNTER → 2024-04-14 | Outpatient (CLI) | payer BC ==
[2024-04-14 13:27] LABS: ALBUMIN 3.5 G/DL (3.2-5.2); ALKALINE PHOSPHATASE 126 U/L (46-116); ALT/SGPT 89 U/L (7.0-40); AST/SGOT 64 U/L (<34); BILIRUBIN,TOTAL 0.5 MG/DL (0.3-1.2); BLOOD UREA NITROGEN 10 MG/DL (9-23); CALCIUM LEVEL 9.4 MG/DL (8.3-10.6); CARBON DIOXIDE LEVEL 30 MMOL/L (20-31); CHLORIDE LEVEL 103 MMOL/L (98-107); CHOLESTEROL LEVEL 156 MG/DL (<200); CHOLESTEROL RISK RATIO 2.38 (<5); CREATININE FOR GFR 0.76 MG/DL (0.70-1.30); GLOMERULAR FILTRATION RATE > 60.0 (>49); HDL CHOLESTEROL 65.3 MG/DL (>40); LDL CHOLESTEROL 59.7 MG/DL (<100); NON-HDL-C 90.7 MG/DL; POTASSIUM SERUM 4.7 MMOL/L (3.5-5.1); SODIUM LEVEL 138 MMOL/L (136-145); TOTAL PROTEIN 6.6 G/DL (5.7-8.2); TRIGLYCERIDES LEVEL 155 MG/DL (<150)
[2024-04-14 13:47] LABS: HEMOGLOBIN A1c 7.3 % (4.0-6.0)
[2024-04-15 10:28] LABS: GLUCOSE, FASTING 152 MG/DL (74-106)
== END ==
LOC: M WUC 08:29
PROVIDERS: ATTEND Internal Medicine
DX: E78.5 Hyperlipidemia, unspecified (principal); R73.01 Impaired fasting glucose

== ENCOUNTER → 2024-04-19 | Outpatient (CLI) | payer BC ==
[2024-04-19 10:52] LABS: BASO # 0.1 10^3/uL (0.0-0.2); BASO % 0.5 % (0.0-1.0); EOS # 0.2 10^3/uL (0.0-0.5); EOS % 1.5 % (0.0-3.0); HEMATOCRIT 37.8 % (42.0-52.0); LYMPH # 2.1 10^3/uL (1.5-5.0); LYMPH % 16.2 % (24.0-44.0); MEAN CORPUSCULAR HEMOGLOBIN 31.9 pg (27.0-33.0); MEAN CORPUSCULAR HGB CONC 31.7 g/dl (32.0-36.5); MEAN CORPUSCULAR VOLUME 100.5 fl (80.0-96.0); MONO # 0.7 10^3/uL (0.0-0.8); MONO % 5.4 % (2.0-8.0); NEUTROPHILS # 9.6 10^3/uL (1.5-8.5); NEUTROPHILS % 73.4 % (36.0-66.0); RED BLOOD COUNT 3.76 10^6/uL (4.30-6.10); WHITE BLOOD COUNT 13.1 10^3/uL (4.0-10.0)
[2024-04-19 10:53] LABS: ALBUMIN 3.3 G/DL (3.2-5.2); ALKALINE PHOSPHATASE 126 U/L (46-116); ALT/SGPT 53 U/L (7.0-40); AST/SGOT 39 U/L (<34); BILIRUBIN,TOTAL 0.5 MG/DL (0.3-1.2); BLOOD UREA NITROGEN 11 MG/DL (9-23); CALCIUM LEVEL 8.8 MG/DL (8.3-10.6); CARBON DIOXIDE LEVEL 28 MMOL/L (20-31); CHLORIDE LEVEL 106 MMOL/L (98-107); CREATININE FOR GFR 0.84 MG/DL (0.70-1.30); GLOMERULAR FILTRATION RATE > 60.0 (>49); GLUCOSE, FASTING 217 MG/DL (74-106); PLATELET COUNT, AUTOMATED 98 10^3/uL (150-450); POTASSIUM SERUM 4.4 MMOL/L (3.5-5.1); SODIUM LEVEL 139 MMOL/L (136-145); TOTAL PROTEIN 6.3 G/DL (5.7-8.2)
[2024-04-19 11:13] LABS: CA19-9 TUMOR MARKER,CARBOHYDRA 45.3 U/ML (<35.0)
== END ==
LOC: M WUC 08:16
PROVIDERS: ATTEND Internal Medicine Medical Oncology
DX: C25.2 Malignant neoplasm of tail of pancreas (principal)

== ENCOUNTER → 2024-05-10 | Outpatient (CLI) | payer BC ==
[2024-05-10 10:35] LABS: BASO # 0.1 10^3/uL (0.0-0.2); BASO % 0.5 % (0.0-1.0); EOS # 0.3 10^3/uL (0.0-0.5); EOS % 2.9 % (0.0-3.0); HEMATOCRIT 39.9 % (42.0-52.0); HEMOGLOBIN 12.6 g/dl (13.5-17.5); LYMPH % 20.2 % (24.0-44.0); MEAN CORPUSCULAR HEMOGLOBIN 31.8 pg (27.0-33.0); MEAN CORPUSCULAR HGB CONC 31.6 g/dl (32.0-36.5); MEAN CORPUSCULAR VOLUME 100.8 fl (80.0-96.0); MONO # 0.9 10^3/uL (0.0-0.8); MONO % 8.7 % (2.0-8.0); NEUTROPHILS # 6.5 10^3/uL (1.5-8.5); NEUTROPHILS % 65.8 % (36.0-66.0); PLATELET COUNT, AUTOMATED 165 10^3/uL (150-450); RED BLOOD COUNT 3.96 10^6/uL (4.30-6.10)
[2024-05-10 11:09] LABS: ALBUMIN 3.6 G/DL (3.2-5.2); ALKALINE PHOSPHATASE 102 U/L (46-116); ALT/SGPT 67 U/L (7.0-40); AST/SGOT 87 U/L (<34); BILIRUBIN,TOTAL 0.5 MG/DL (0.3-1.2); BLOOD UREA NITROGEN 11 MG/DL (9-23); CALCIUM LEVEL 9.3 MG/DL (8.3-10.6); CARBON DIOXIDE LEVEL 28 MMOL/L (20-31); CHLORIDE LEVEL 102 MMOL/L (98-107); CREATININE FOR GFR 0.73 MG/DL (0.70-1.30); GLOMERULAR FILTRATION RATE > 60.0 (>49); GLUCOSE, FASTING 192 MG/DL (74-106); POTASSIUM SERUM 4.6 MMOL/L (3.5-5.1); SODIUM LEVEL 135 MMOL/L (136-145); TOTAL PROTEIN 6.9 G/DL (5.7-8.2)
[2024-05-10 11:26] LABS: CA19-9 TUMOR MARKER,CARBOHYDRA 45.5 U/ML (<35.0)
== END ==
LOC: M WUC 08:29
PROVIDERS: ATTEND Internal Medicine Medical Oncology
DX: C25.2 Malignant neoplasm of tail of pancreas (principal)

== ENCOUNTER → 2024-05-31 | Outpatient (CLI) | payer BC ==
[2024-05-31 18:42] LABS: BASO # 0.1 10^3/uL (0.0-0.2); BASO % 0.7 % (0.0-1.0); EOS # 0.4 10^3/uL (0.0-0.5); EOS % 4.1 % (0.0-3.0); HEMATOCRIT 40.5 % (42.0-52.0); HEMOGLOBIN 12.4 g/dl (13.5-17.5); LYMPH % 18.9 % (24.0-44.0); MEAN CORPUSCULAR HEMOGLOBIN 31.6 pg (27.0-33.0); MEAN CORPUSCULAR HGB CONC 30.6 g/dl (32.0-36.5); MEAN CORPUSCULAR VOLUME 103.1 fl (80.0-96.0); MONO # 0.8 10^3/uL (0.0-0.8); MONO % 7.3 % (2.0-8.0); NEUTROPHILS # 7.2 10^3/uL (1.5-8.5); NEUTROPHILS % 68.2 % (36.0-66.0); PLATELET COUNT, AUTOMATED 167 10^3/uL (150-450); RED BLOOD COUNT 3.93 10^6/uL (4.30-6.10); WHITE BLOOD COUNT 10.5 10^3/uL (4.0-10.0)
[2024-05-31 18:45] LABS: ALBUMIN 3.8 G/DL (3.2-5.2); ALKALINE PHOSPHATASE 95 U/L (46-116); ALT/SGPT 56 U/L (7.0-40); AST/SGOT 55 U/L (<34); BILIRUBIN,TOTAL 0.6 MG/DL (0.3-1.2); BLOOD UREA NITROGEN 13 MG/DL (9-23); CALCIUM LEVEL 9.5 MG/DL (8.3-10.6); CARBON DIOXIDE LEVEL 29 MMOL/L (20-31); CHLORIDE LEVEL 105 MMOL/L (98-107); GLOMERULAR FILTRATION RATE > 60.0 (>49); GLUCOSE, FASTING 138 MG/DL (74-106); POTASSIUM SERUM 4.3 MMOL/L (3.5-5.1); SODIUM LEVEL 140 MMOL/L (136-145); TOTAL PROTEIN 6.8 G/DL (5.7-8.2)
[2024-05-31 19:02] LABS: CA19-9 TUMOR MARKER,CARBOHYDRA 43.9 U/ML (<35.0)
== END ==
LOC: M WUC 12:10
PROVIDERS: ATTEND Internal Medicine Medical Oncology
DX: C25.2 Malignant neoplasm of tail of pancreas (principal)

== ENCOUNTER → 2024-06-14 | Outpatient (CLI) | payer BC ==
[2024-06-15 15:53] LABS: PSA FREE 0.5 ng/mL; PSA TOTAL 1.9 ng/mL (< OR = 4.0)
== END ==
LOC: M WUC 08:51
PROVIDERS: ATTEND Nurse Practitioner Family
DX: R97.20 Elevated prostate specific antigen [PSA] (principal)

== ENCOUNTER → 2024-06-21 | Outpatient (CLI) | payer BC ==
[2024-06-21 12:46] LABS: BASO # 0.1 10^3/uL (0.0-0.2); BASO % 0.7 % (0.0-1.0); EOS # 0.4 10^3/uL (0.0-0.5); EOS % 4.9 % (0.0-3.0); HEMATOCRIT 41.4 % (42.0-52.0); HEMOGLOBIN 13.1 g/dl (13.5-17.5); LYMPH # 1.8 10^3/uL (1.5-5.0); LYMPH % 19.7 % (24.0-44.0); MEAN CORPUSCULAR HEMOGLOBIN 31.3 pg (27.0-33.0); MEAN CORPUSCULAR HGB CONC 31.6 g/dl (32.0-36.5); MEAN CORPUSCULAR VOLUME 98.8 fl (80.0-96.0); MONO # 0.9 10^3/uL (0.0-0.8); MONO % 10.3 % (2.0-8.0); NEUTROPHILS # 5.8 10^3/uL (1.5-8.5); NEUTROPHILS % 63.8 % (36.0-66.0); PLATELET COUNT, AUTOMATED 181 10^3/uL (150-450); RED BLOOD COUNT 4.19 10^6/uL (4.30-6.10)
[2024-06-21 13:07] LABS: ALBUMIN 3.8 G/DL (3.2-5.2); ALKALINE PHOSPHATASE 95 U/L (46-116); ALT/SGPT 45 U/L (7.0-40); AST/SGOT 50 U/L (<34); BILIRUBIN,TOTAL 0.7 MG/DL (0.3-1.2); BLOOD UREA NITROGEN 11 MG/DL (9-23); CALCIUM LEVEL 9.3 MG/DL (8.3-10.6); CARBON DIOXIDE LEVEL 30 MMOL/L (20-31); CHLORIDE LEVEL 104 MMOL/L (98-107); CREATININE FOR GFR 0.74 MG/DL (0.70-1.30); GLOMERULAR FILTRATION RATE > 60.0 (>49); GLUCOSE, FASTING 138 MG/DL (74-106); POTASSIUM SERUM 4.2 MMOL/L (3.5-5.1); SODIUM LEVEL 138 MMOL/L (136-145); TOTAL PROTEIN 6.9 G/DL (5.7-8.2)
== END ==
LOC: M WUC 09:25
PROVIDERS: ATTEND Internal Medicine Medical Oncology
DX: C25.2 Malignant neoplasm of tail of pancreas (principal)

== ENCOUNTER → 2024-06-25 | Outpatient (CLI) | payer BC | LOC: M WUC 10:30 | PROVIDERS: ATTEND Family Medicine | DX: M54.50 Low back pain, unspecified (principal); R07.9 Chest pain, unspecified ==

== ENCOUNTER → 2024-06-28 | Outpatient (CLI) | payer BC ==
[2024-06-28 13:52] LABS: ALBUMIN 3.8 G/DL (3.2-5.2); ALKALINE PHOSPHATASE 83 U/L (46-116); ALT/SGPT 69 U/L (7.0-40); AST/SGOT 74 U/L (<34); BILIRUBIN,TOTAL 0.7 MG/DL (0.3-1.2); BLOOD UREA NITROGEN 9 MG/DL (9-23); CALCIUM LEVEL 9.7 MG/DL (8.3-10.6); CARBON DIOXIDE LEVEL 28 MMOL/L (20-31); CHLORIDE LEVEL 104 MMOL/L (98-107); CREATININE FOR GFR 0.73 MG/DL (0.70-1.30); GLOMERULAR FILTRATION RATE > 60.0 (>49); GLUCOSE, FASTING 176 MG/DL (74-106); POTASSIUM SERUM 4.4 MMOL/L (3.5-5.1); SODIUM LEVEL 136 MMOL/L (136-145); TOTAL PROTEIN 7.3 G/DL (5.7-8.2)
[2024-06-28 14:09] LABS: BASO # 0.1 10^3/uL (0.0-0.2); BASO % 0.9 % (0.0-1.0); EOS # 0.4 10^3/uL (0.0-0.5); EOS % 4.7 % (0.0-3.0); HEMOGLOBIN 13.3 g/dl (13.5-17.5); LYMPH # 2.1 10^3/uL (1.5-5.0); LYMPH % 26.6 % (24.0-44.0); MEAN CORPUSCULAR HEMOGLOBIN 31.7 pg (27.0-33.0); MEAN CORPUSCULAR HGB CONC 32.4 g/dl (32.0-36.5); MEAN CORPUSCULAR VOLUME 97.9 fl (80.0-96.0); MONO % 13.1 % (2.0-8.0); NEUTROPHILS # 4.2 10^3/uL (1.5-8.5); NEUTROPHILS % 54.4 % (36.0-66.0); PLATELET COUNT, AUTOMATED 259 10^3/uL (150-450); RED BLOOD COUNT 4.19 10^6/uL (4.30-6.10); WHITE BLOOD COUNT 7.7 10^3/uL (4.0-10.0)
[2024-06-28 14:11] LABS: CA19-9 TUMOR MARKER,CARBOHYDRA 61.3 U/ML (<35.0)
== END ==
LOC: M WUC 10:29
PROVIDERS: ATTEND Internal Medicine Medical Oncology
DX: C25.2 Malignant neoplasm of tail of pancreas (principal)

== ENCOUNTER 2024-07-10 18:13 | Observation (INO) | payer BC ==
[~2024-07-10] VITALS: Ht 177.8 cm; Wt 102.3 kg
[2024-07-10] MEDS: ACETAMINOPHEN 500 MG TAB PO ONE (19:15)
[2024-07-10 20:06] LABS: HEMATOCRIT 35.3 % (42.0-52.0); HEMOGLOBIN 11.5 g/dl (13.5-17.5); MEAN CORPUSCULAR HGB CONC 32.6 g/dl (32.0-36.5); MEAN CORPUSCULAR VOLUME 95.1 fl (80.0-96.0); RED BLOOD COUNT 3.71 10^6/uL (4.30-6.10); WHITE BLOOD COUNT 5.4 10^3/uL (4.0-10.0)
[2024-07-10 20:12] LABS: ERYTHROCYTE SEDIMENTATION RATE 30 mm/hr (0-20); PLATELET COUNT, AUTOMATED 57 10^3/uL (150-450)
[2024-07-10 20:43] LABS: ATYPICAL LYMPH 1 % (0-5); EOSINOPHILS 3 % (0-3); LYMPHOCYTES 20 % (16-44); MONOCYTES 8 % (0-5); NEUTROPHILS 66 % (28-66)
[2024-07-10 20:44] LABS: PLATELET ESTIMATE DECREASED (NORMAL)
[2024-07-10 20:45] LABS: ANISOCYTOSIS 1+
[2024-07-10] MEDS ORDERED: cefTRIAXone SOD 2 GM in D5W MINI-BAG PLUS 50 ML IV ONE (21:00)
[2024-07-10] MEDS: PIPERACILLIN/TAZOBACTAM SOD 4.5 GM in D5W MINI-BAG PLUS 50 ML IV ONE (21:01)
[2024-07-10] MEDS: NS 3,070 ML in IV 1 EA IV ONE (21:02)
[2024-07-10] MEDS: GABAPENTIN 300 MG CAP PO ONE (21:02)
[2024-07-10] MEDS: DULoxetine 20MG CAP (CYMBALTA) PO ONE (21:45)
[2024-07-10 21:48] LABS: INR 1.06; PARTIAL THROMBOPLASTIN TIME 26.2 SECONDS (24.8-34.2); PROTHROMBIN TIME 13.5 SECONDS (12.5-14.5)
[2024-07-10 22:03] LABS: LIPASE 18 U/L (12-53)
[2024-07-10 22:04] LABS: CPK CREATINE PHOSPHOKINASE 101 U/L (46-171)
[2024-07-10 22:05] LABS: ALBUMIN 3.3 G/DL (3.2-5.2); ALKALINE PHOSPHATASE 82 U/L (46-116); ALT/SGPT 38 U/L (7.0-40); AST/SGOT 29 U/L (<34); BILIRUBIN,DIRECT 0.3 MG/DL (<0.4); BILIRUBIN,TOTAL 0.8 MG/DL (0.3-1.2); BLOOD UREA NITROGEN 6 MG/DL (9-23); CALCIUM LEVEL 8.1 MG/DL (8.3-10.6); CARBON DIOXIDE LEVEL 26 MMOL/L (20-31); CHLORIDE LEVEL 101 MMOL/L (98-107); CK-MB VALUE MASS < 1.0 NG/ML (<3.6); CREATININE FOR GFR 0.71 MG/DL (0.70-1.30); GLOMERULAR FILTRATION RATE > 60.0 (>49); GLUCOSE, FASTING 152 MG/DL (74-106); MB/CK RELATIVE INDEX 0.99 (< OR =4); POTASSIUM SERUM 3.4 MMOL/L (3.5-5.1); SODIUM LEVEL 133 MMOL/L (136-145); TOTAL PROTEIN 6.4 G/DL (5.7-8.2)
[2024-07-10] MEDS ORDERED: HYDR50TA70 PO (22:31)
[2024-07-10] MEDS ORDERED: TIMO0.5S20 OU (22:31)
[2024-07-10] MEDS ORDERED: DULO1CAP5 PO (22:31)
[2024-07-10] MEDS ORDERED: METF500T13 PO (22:31)
[2024-07-10] MEDS ORDERED: GABA-282 PO (22:31)
[2024-07-10] MEDS ORDERED: LIDO30CR18 TOP (22:36)
[2024-07-10] MEDS ORDERED: PROC10TA5 PO (22:36)
[2024-07-10] MEDS ORDERED: IBUP200C25 PO (22:36)
[2024-07-10] MEDS ORDERED: ACET-683 PO (22:36)
[2024-07-10] MEDS ORDERED: HOME MED LIST COMPLETE! XX SCH (22:40)
[2024-07-10] MEDS ORDERED: ESSIAC TEA PO (22:44)
[2024-07-10] MEDS ORDERED: ISOVUE-370 76% 100ML VIAL As Ordered ONE (22:44)
[2024-07-11 01:50] VITALS: O2SAT 90
[2024-07-11 02:29] LABS: CK-MB VALUE MASS < 1.0 NG/ML (<3.6)
[2024-07-11 02:33] LABS: CPK CREATINE PHOSPHOKINASE 111 U/L (46-171)
[2024-07-11] MEDS ORDERED: IBUPROFEN 600MG TAB PO PRN (03:15)
[2024-07-11] MEDS ORDERED: GLUCAGON INJ 1MG VIAL SC PRN (03:35)
[2024-07-11] MEDS ORDERED: DEXTROSE 50% 50ML SYRINGE IV PRN (03:35)
[2024-07-11] MEDS ORDERED: GLUCOSE 4 GM CHEW PO PRN (03:35)
[2024-07-11] MEDS ORDERED: KETOROLAC 30 MG/ML 1ML VIAL IV PRN ×2 (03:40)
[2024-07-11 03:54] LABS: PROCALCITONIN 0.22 ng/ml
[2024-07-11] MEDS: POTASSIUM CHLORIDE 10MEQ SR TABLET PO ONE (04:34)
[2024-07-11] MEDS: DULoxetine 30MG CAPSULE (CYMBALTA) PO SCH (04:46)
[2024-07-11 05:00] VITALS: BP 137/71; TEMP 99.6; O2SAT 96
[2024-07-11] MEDS: ACETAMINOPHEN 500 MG TAB PO PRN (05:34)
[2024-07-11] MEDS: LevoFLOXacin IV 750 MG in IV 1 EA IV SCH (05:35)
[2024-07-11] MEDS ORDERED: HEPARIN SOD (PORCINE) 5000UNITS/ML 1ML VIAL/SYRINGE SC SCH (06:00)
[2024-07-11] MEDS: OMEPRAZOLE 20MG CAP PO SCH (07:52)
[2024-07-11] MEDS: GABAPENTIN 300 MG CAP PO SCH (07:52)
[2024-07-11] MEDS: metroNIDAZOLE 500 MG in IV 1 EA IV SCH (07:52)
[2024-07-11] MEDS: INSULIN LISPRO (NovoLOG) PER UNIT SC SCH (07:53)
[2024-07-11] MEDS: DOCUSATE SODIUM 100MG CAPSULE PO SCH (07:53)
[2024-07-11] MEDS: TIMOLOL MALEATE 0.5% OPHTH SOLN 5 ML OU SCH (08:28)
[2024-07-11] MEDS ORDERED: AMOX875T2 PO (11:31)
[2024-07-11 12:04] VITALS: BP 152/87; TEMP 97.2; O2SAT 96
[2024-07-11] MEDS ORDERED: INSULIN LISPRO (NovoLOG) PER UNIT SC SCH (21:00)
[2024-07-11] MEDS ORDERED: SIMVASTATIN 20 MG TAB PO SCH (21:00)
== END 2024-07-11 12:57 | disposition home or self-care (01) ==
LOC: M ED 18:13 → M ED INP 18:14 → M MSPAV 07-11 05:02
PROVIDERS: ADMIT Student in an Organized Health Care Education/Training Program; ATTEND Family Medicine
DX: K57.32 Diverticulitis of large intestine without perforation or abscess without bleeding (principal); J18.9 Pneumonia, unspecified organism; R09.02 Hypoxemia; C25.9 Malignant neoplasm of pancreas, unspecified; R00.0 Tachycardia, unspecified; D84.9 Immunodeficiency, unspecified; D69.6 Thrombocytopenia, unspecified; R07.9 Chest pain, unspecified; R06.02 Shortness of breath; E87.20 Acidosis, unspecified; E87.6 Hypokalemia; E11.9 Type 2 diabetes mellitus without complications; G89.3 Neoplasm related pain (acute) (chronic); K21.9 Gastro-esophageal reflux disease without esophagitis; E78.5 Hyperlipidemia, unspecified; H40.9 Unspecified glaucoma; Z88.8 Allergy status to other drugs, medicaments and biological substances; Z88.6 Allergy status to analgesic agent; Z79.899 Other long term (current) drug therapy; Z79.84 Long term (current) use of oral hypoglycemic drugs; Z87.891 Personal history of nicotine dependence; Z83.49 Family history of other endocrine, nutritional and metabolic diseases
CPT/HCPCS: 71045; 71275; 74177; 80048; 80076; 81001; 82550; 82553; 83605; 83690; 83880; 84145; 84484; 85025; 85049; 85055; 85610; 85652; 85730; 86140; 87040; 87486; 87581; 87633; 87641; 87798; 93005; 93041; 94760; 96374; 96375; 99285; J1815; J1836; J1956; J2543; Q9967

== ENCOUNTER → 2024-07-13 | Outpatient (CLI) | payer BC ==
[~2024-07-13] MED LIST changes: +ACET-683 PO; +AMOX875T2 PO; +DULO1CAP5 PO; +ESSIAC TEA PO; +GABA-282 PO; +HYDR50TA70 PO; +IBUP200C25 PO; +LIDO30CR18 TOP; +METF500T13 PO; +PROC10TA5 PO; +TIMO0.5S20 OU
[2024-07-13 16:45] LABS: BASO % 0.5 % (0.0-1.0); EOS # 0.4 10^3/uL (0.0-0.5); EOS % 5.1 % (0.0-3.0); HEMATOCRIT 38.1 % (42.0-52.0); HEMOGLOBIN 11.9 g/dl (13.5-17.5); LYMPH # 1.5 10^3/uL (1.5-5.0); LYMPH % 17.5 % (24.0-44.0); MEAN CORPUSCULAR HEMOGLOBIN 30.1 pg (27.0-33.0); MEAN CORPUSCULAR HGB CONC 31.2 g/dl (32.0-36.5); MEAN CORPUSCULAR VOLUME 96.2 fl (80.0-96.0); MONO % 11.3 % (2.0-8.0); NEUTROPHILS # 5.4 10^3/uL (1.5-8.5); NEUTROPHILS % 64.3 % (36.0-66.0); RED BLOOD COUNT 3.96 10^6/uL (4.30-6.10); WHITE BLOOD COUNT 8.4 10^3/uL (4.0-10.0)
[2024-07-13 16:53] LABS: PLATELET COUNT, AUTOMATED 90 10^3/uL (150-450)
[2024-07-13 17:09] LABS: ALBUMIN 3.5 G/DL (3.2-5.2); ALKALINE PHOSPHATASE 95 U/L (46-116); ALT/SGPT 32 U/L (7.0-40); AST/SGOT 35 U/L (<34); BILIRUBIN,TOTAL 0.7 MG/DL (0.3-1.2); BLOOD UREA NITROGEN 8 MG/DL (9-23); CALCIUM LEVEL 8.7 MG/DL (8.3-10.6); CARBON DIOXIDE LEVEL 28 MMOL/L (20-31); CHLORIDE LEVEL 102 MMOL/L (98-107); CREATININE FOR GFR 0.78 MG/DL (0.70-1.30); GLOMERULAR FILTRATION RATE > 60.0 (>49); GLUCOSE, FASTING 133 MG/DL (74-106); POTASSIUM SERUM 3.2 MMOL/L (3.5-5.1); SODIUM LEVEL 135 MMOL/L (136-145); TOTAL PROTEIN 6.7 G/DL (5.7-8.2)
[2024-07-13 17:26] LABS: CA19-9 TUMOR MARKER,CARBOHYDRA 91.6 U/ML (<35.0)
== END ==
LOC: M WUC 11:43
PROVIDERS: ATTEND Internal Medicine
DX: C25.7 Malignant neoplasm of other parts of pancreas (principal)

== ENCOUNTER 2024-07-20 23:26 | Inpatient (IN) | payer BC ==
[~2024-07-20] VITALS: Ht 177.8 cm; Wt 100.6 kg
[2024-07-21] VITALS (7 sets, daily range): BP systolic 157–180; BP diastolic 72–89; TEMP 96.7–98; O2SAT 91–95
[2024-07-21] MEDS: ONDANSETRON 4MG 2ML VIAL IV ONE ×2 (01:51→07:39)
[2024-07-21] MEDS: MORPHINE 4 MG/ML 1ML VIAL IV ONE (01:52)
[2024-07-21 01:59] LABS: BASO % 0.3 % (0.0-1.0); EOS # 0.5 10^3/uL (0.0-0.5); EOS % 3.7 % (0.0-3.0); HEMATOCRIT 37.9 % (42.0-52.0); HEMOGLOBIN 12.4 g/dl (13.5-17.5); LYMPH # 1.9 10^3/uL (1.5-5.0); LYMPH % 15.2 % (24.0-44.0); MEAN CORPUSCULAR HEMOGLOBIN 31.7 pg (27.0-33.0); MEAN CORPUSCULAR HGB CONC 32.7 g/dl (32.0-36.5); MEAN CORPUSCULAR VOLUME 96.9 fl (80.0-96.0); MONO # 0.9 10^3/uL (0.0-0.8); MONO % 7.3 % (2.0-8.0); PLATELET COUNT, AUTOMATED 221 10^3/uL (150-450); RED BLOOD COUNT 3.91 10^6/uL (4.30-6.10); WHITE BLOOD COUNT 12.3 10^3/uL (4.0-10.0)
[2024-07-21 02:23] LABS: ALBUMIN 3.5 G/DL (3.2-5.2); BILIRUBIN,DIRECT 0.2 MG/DL (<0.4); BILIRUBIN,TOTAL 0.5 MG/DL (0.3-1.2); TOTAL PROTEIN 6.9 G/DL (5.7-8.2)
[2024-07-21 03:02] LABS: MAGNESIUM LEVEL 1.7 MG/DL (1.8-2.4)
[2024-07-21] MEDS: HYDROMORPHONE HCL 0.5 MG/ 0.5 ML SYRINGE IV ONE (03:14)
[2024-07-21] MEDS ORDERED: ISOVUE-370 76% 100ML VIAL As Ordered ONE (04:34)
[2024-07-21] MEDS: NS 1,000 ML IV ONE (04:35)
[2024-07-21] MEDS: ACETAMINOPHEN *IV* 1,000 MG in IV 1 EA IV ONE ×2 (07:39→17:29)
[2024-07-21] MEDS ORDERED: AMOX875T2 PO (09:13)
[2024-07-21] MEDS ORDERED: POTA1TAB23 PO (09:13)
[2024-07-21] MEDS ORDERED: TRAM50TA2 PO (09:13)
[2024-07-21] MEDS ORDERED: HOME MED LIST COMPLETE! XX SCH (09:15)
[2024-07-21 10:35] LABS: INR 1.12; PARTIAL THROMBOPLASTIN TIME 28.4 SECONDS (24.8-34.2); PROTHROMBIN TIME 14.1 SECONDS (12.5-14.5)
[2024-07-21] MEDS ORDERED: PROCHLORPERAZINE 5MG TAB PO PRN (10:35)
[2024-07-21] MEDS: APIXABAN 5 MG TAB (ELIQUIS) PO SCH (11:02)
[2024-07-21] MEDS: AUGMENTIN 875 MG TAB PO SCH (11:03)
[2024-07-21] MEDS: OMEPRAZOLE 20MG CAP PO SCH (11:03)
[2024-07-21] MEDS: PERCOCET 5MG/325MG TAB PO ONE (11:40)
[2024-07-21] MEDS ORDERED: GLUCOSE 4 GM CHEW PO PRN (14:20)
[2024-07-21] MEDS ORDERED: GLUCAGON INJ 1MG VIAL SC PRN (14:20)
[2024-07-21] MEDS ORDERED: DEXTROSE 50% 50ML SYRINGE IV PRN (14:20)
[2024-07-21] MEDS ORDERED: ELIQ5TAB PO (14:28)
[2024-07-21] MEDS ORDERED: ONDANSETRON 4MG 2ML VIAL IV PRN (15:30)
[2024-07-21] MEDS ORDERED: traMADol 50 MG TAB PO SCH ×2 (16:00→21:00)
[2024-07-21] MEDS: TIMOLOL MALEATE 0.5% OPHTH SOLN 5 ML OU ONE (16:23)
[2024-07-21] MEDS: EMLA CREAM 5GM TUBE (LIDOCAINE/PRILOCAINE) TOP SCH (17:00)
[2024-07-21] MEDS ORDERED: MORPHINE 4 MG/ML 1ML VIAL IV PRN (17:05)
[2024-07-21] MEDS: oxyCODONE 5MG TAB PO ONE (17:05)
[2024-07-21] MEDS: INSULIN LISPRO (NovoLOG) PER UNIT SC SCH ×2 (17:30→20:10)
[2024-07-21] MEDS: LIDOCAINE 5% (LIDODERM) PATCH TD ONE (18:45)
[2024-07-21] MEDS ORDERED: oxyCODONE 5MG TAB PO PRN (20:00)
[2024-07-21] MEDS: TIMOLOL MALEATE 0.5% OPHTH SOLN 5 ML OU SCH (20:07)
[2024-07-21] MEDS: SIMVASTATIN 20 MG TAB PO SCH (20:09)
[2024-07-21] MEDS: DULoxetine 30MG CAPSULE (CYMBALTA) PO SCH (20:09)
[2024-07-21] MEDS: hydrOXYzine 50 MG TAB PO PRN (20:25)
[2024-07-21] MEDS ORDERED: oxyCODONE 5MG TAB PO SCH (21:00)
[2024-07-21] MEDS: ANEXSIA, NORCO 7.5MG/325MG TABLET(HYDROCODONE/APAP) PO SCH (22:00)
[2024-07-22] VITALS: O2SAT 93
[2024-07-22 04:00] VITALS: O2SAT 90
[2024-07-22 04:39] LABS: BASO % 0.5 % (0.0-1.0); EOS # 0.3 10^3/uL (0.0-0.5); EOS % 3.4 % (0.0-3.0); HEMATOCRIT 37.1 % (42.0-52.0); HEMOGLOBIN 11.9 g/dl (13.5-17.5); LYMPH # 2.3 10^3/uL (1.5-5.0); LYMPH % 31.1 % (24.0-44.0); MEAN CORPUSCULAR HEMOGLOBIN 31.5 pg (27.0-33.0); MEAN CORPUSCULAR HGB CONC 32.1 g/dl (32.0-36.5); MEAN CORPUSCULAR VOLUME 98.1 fl (80.0-96.0); MONO % 13.4 % (2.0-8.0); NEUTROPHILS # 3.8 10^3/uL (1.5-8.5); NEUTROPHILS % 51.3 % (36.0-66.0); PLATELET COUNT, AUTOMATED 220 10^3/uL (150-450); RED BLOOD COUNT 3.78 10^6/uL (4.30-6.10); WHITE BLOOD COUNT 7.4 10^3/uL (4.0-10.0)
[2024-07-22 05:07] LABS: BLOOD UREA NITROGEN 12 MG/DL (9-23); CALCIUM LEVEL 8.8 MG/DL (8.3-10.6); CARBON DIOXIDE LEVEL 31 MMOL/L (20-31); CHLORIDE LEVEL 104 MMOL/L (98-107); CREATININE FOR GFR 0.66 MG/DL (0.70-1.30); GLOMERULAR FILTRATION RATE > 60.0 (>49); GLUCOSE, FASTING 144 MG/DL (74-106); POTASSIUM SERUM 3.7 MMOL/L (3.5-5.1); SODIUM LEVEL 138 MMOL/L (136-145)
[2024-07-22 06:00] VITALS: BP 146/67; O2SAT 90
[2024-07-22 08:00] VITALS: BP 125/57; TEMP 97; O2SAT 88
[2024-07-22 10:00] VITALS: BP 125/57; O2SAT 92
[2024-07-22] MEDS ORDERED: DULO1CAP6 PO (10:12)
[2024-07-22] MEDS ORDERED: HYDR-3713 PO (10:12)
[2024-07-22] MEDS ORDERED: COLA100C5 PO (10:13)
[2024-07-22] MEDS ORDERED: LIDOCAINE 5% (LIDODERM) PATCH TD SCH (21:00)
== END 2024-07-22 11:25 | disposition home or self-care (01) | DRG 48 ==
LOC: M ED 23:26 → M ED INP 07-21 08:43 → M ICU 07-21 10:16
PROVIDERS: ADMIT Student in an Organized Health Care Education/Training Program; ATTEND Internal Medicine
PROC: B246ZZZ Ultrasonography of Right and Left Heart (ICD-10-PCS; principal; 2024-07-21)
DX: M79.2 Neuralgia and neuritis, unspecified (principal); E87.20 Acidosis, unspecified; C25.7 Malignant neoplasm of other parts of pancreas; K76.0 Fatty (change of) liver, not elsewhere classified; E83.42 Hypomagnesemia; K21.9 Gastro-esophageal reflux disease without esophagitis; G47.33 Obstructive sleep apnea (adult) (pediatric); E78.5 Hyperlipidemia, unspecified; F41.9 Anxiety disorder, unspecified; E11.9 Type 2 diabetes mellitus without complications; M54.50 Low back pain, unspecified; Z87.891 Personal history of nicotine dependence; Z95.828 Presence of other vascular implants and grafts; Z79.69 Long term (current) use of other immunomodulators and immunosuppressants; G89.3 Neoplasm related pain (acute) (chronic); R09.02 Hypoxemia; H40.9 Unspecified glaucoma; Z79.84 Long term (current) use of oral hypoglycemic drugs; Z88.4 Allergy status to anesthetic agent; Z88.8 Allergy status to other drugs, medicaments and biological substances; Z79.899 Other long term (current) drug therapy

== ENCOUNTER 2024-08-02 23:22 | Emergency (ER) | payer BC ==
[~2024-08-02] VITALS: Ht 177.8 cm; Wt 102.9 kg
[~2024-08-02 23:22] MED LIST changes: -PROHANCE 279.3MG/ML 15ML VIAL ONE; -PROHANCE 279.3MG/ML 5ML VIAL ONE
[2024-08-02 23:23] VITALS: BP 178/109; TEMP 97.4; O2SAT 96
== END 2024-08-02 23:46 | disposition left against medical advice (07) ==
LOC: M ED 23:22
DX: Z53.21 Procedure and treatment not carried out due to patient leaving prior to being seen by health care provider (principal)

== ENCOUNTER → 2024-08-02 | Outpatient (CLI) | payer BC ==
[~2024-08-02] MED LIST changes: +COLA100C5 PO; +DULO1CAP6 PO; +ELIQ5TAB PO; +HYDR-3713 PO; +POTA1TAB23 PO; +PROHANCE 279.3MG/ML 15ML VIAL ONE; +PROHANCE 279.3MG/ML 5ML VIAL ONE; +TRAM50TA2 PO
== END ==
LOC: M PLAIMG 07:00
PROVIDERS: ATTEND Internal Medicine Medical Oncology
DX: C25.2 Malignant neoplasm of tail of pancreas (principal); K86.2 Cyst of pancreas; K76.89 Other specified diseases of liver; N28.1 Cyst of kidney, acquired
CPT/HCPCS: 74183; A9576

== ENCOUNTER 2024-08-24 03:47 | Emergency (ER) | payer BC ==
[~2024-08-24] VITALS: Ht 177.8 cm; Wt 98.9 kg
[~2024-08-24 03:47] MED LIST changes: +GABA-1172 PO; -GABA-282 PO
[2024-08-24 03:50] VITALS: BP 198/120; TEMP 98.1; O2SAT 92
== END 2024-08-24 04:11 | disposition left against medical advice (07) ==
LOC: M ED 03:47
DX: Z53.21 Procedure and treatment not carried out due to patient leaving prior to being seen by health care provider (principal)

== ENCOUNTER → 2024-09-08 | Outpatient (CLI) | payer BC ==
[~2024-09-08] MED LIST changes: +HYDR2TAB2; +OMEP-173; +ONDA-282 PO
== END ==
LOC: M WUC 09:52
PROVIDERS: ATTEND Otolaryngology
DX: E86.0 Dehydration (principal); C25.2 Malignant neoplasm of tail of pancreas

== ENCOUNTER 2024-09-10 11:00 | Emergency (ER) | payer BC ==
[~2024-09-10] VITALS: Ht 170.2 cm; Wt 95.2 kg
[~2024-09-10 11:00] MED LIST changes: -HYDR2TAB2; -OMEP-173; -ONDA-282 PO
[2024-09-10 11:13] VITALS: BP 169/84; TEMP 96.8; O2SAT 99
[2024-09-10] MEDS ORDERED: HYDR2TAB2 (11:30)
[2024-09-10] MEDS ORDERED: OMEP-173 (11:30)
[2024-09-10] MEDS ORDERED: ONDA-282 PO (11:30)
== END 2024-09-10 12:48 | disposition left against medical advice (07) ==
LOC: M ED 11:00
DX: Z53.21 Procedure and treatment not carried out due to patient leaving prior to being seen by health care provider (principal)

== ENCOUNTER 2024-10-06 13:38 | Inpatient (IN) | payer BC ==
[~2024-10-06] VITALS: Ht 177.8 cm; Wt 93.2 kg
[~2024-10-06 13:38] MED LIST changes: +HYDR2TAB2 PO; +OMEP-173; +ONDA-282 PO
[2024-10-06] MEDS: IBUPROFEN 600MG TAB PO ONE (14:52)
[2024-10-06] MEDS: NS 1,000 ML IV ONE (14:52)
[2024-10-06] MEDS: SODIUM CHLORIDE 0.9% INJ 10 ML SYR IV PRN (14:52)
[2024-10-06 15:00] LABS: HEMATOCRIT 31.1 % (42.0-52.0); HEMOGLOBIN 10.5 g/dl (13.5-17.5); MEAN CORPUSCULAR HEMOGLOBIN 29.5 pg (27.0-33.0); MEAN CORPUSCULAR HGB CONC 33.8 g/dl (32.0-36.5); MEAN CORPUSCULAR VOLUME 87.4 fl (80.0-96.0); RED BLOOD COUNT 3.56 10^6/uL (4.30-6.10); WHITE BLOOD COUNT 4.5 10^3/uL (4.0-10.0)
[2024-10-06 15:03] LABS: PLATELET COUNT, AUTOMATED 33 10^3/uL (150-450)
[2024-10-06 15:08] LABS: LIPASE 15 U/L (12-53)
[2024-10-06 15:10] LABS: ALBUMIN 2.5 G/DL (3.2-5.2); ALKALINE PHOSPHATASE 66 U/L (40-129); ALT/SGPT 38 U/L (7.0-40); AST/SGOT 41 U/L (<34); BILIRUBIN,DIRECT 0.3 MG/DL (<0.4); BILIRUBIN,TOTAL 0.7 MG/DL (0.3-1.2); BLOOD UREA NITROGEN 10 MG/DL (9-23); CALCIUM LEVEL 8.5 MG/DL (8.3-10.6); CARBON DIOXIDE LEVEL 25 MMOL/L (20-31); CHLORIDE LEVEL 95 MMOL/L (98-107); CREATININE FOR GFR 0.48 MG/DL (0.70-1.30); GLOMERULAR FILTRATION RATE > 60.0 (>49); GLUCOSE, FASTING 181 MG/DL (74-106); POTASSIUM SERUM 3.7 MMOL/L (3.5-5.1); SODIUM LEVEL 129 MMOL/L (136-145); TOTAL PROTEIN 6.5 G/DL (5.7-8.2)
[2024-10-06 15:16] LABS: LYMPHOCYTES 2 % (16-44); MONOCYTES 1 % (0-5); NEUTROPHILS 83 % (28-66); PLATELET ESTIMATE DECREASED (NORMAL)
[2024-10-06] MEDS ORDERED: ISOVUE-370 76% 100ML VIAL As Ordered ONE (15:50)
[2024-10-06] MEDS: fentaNYL 100 MCG/2 ML INJECTION IV ONE (17:29)
[2024-10-06] MEDS: CEFEPIME HCL 2 GM in DEXTROSE 5% (D5W) ADV/MINI-BAG 50 ML IV ONE (17:52)
[2024-10-06] MEDS ORDERED: OMEP40CA5 PO (17:57)
[2024-10-06] MEDS ORDERED: DULO60CA35 PO (17:57)
[2024-10-06] MEDS ORDERED: MM S100C PO (17:57)
[2024-10-06] MEDS ORDERED: DULO30CA47 PO (17:57)
[2024-10-06] MEDS ORDERED: MORP-69 PO (17:57)
[2024-10-06] MEDS ORDERED: HOME MED LIST COMPLETE! XX SCH (18:00)
[2024-10-06] MEDS ORDERED: HYDROmorphone HCL 2MG/ML 1ML VIAL IV PRN (18:30)
[2024-10-06 18:35] LABS: OSMOLALITY URINE 215 MOSM/KG (50-1400)
[2024-10-06 18:50] LABS: SODIUM,RANDOM URINE 12 MMOL/L
[2024-10-06] MEDS: NS 1,000 ML IV SCH (18:58)
[2024-10-06] MEDS ORDERED: DEXTROSE 50% 50ML SYRINGE IV PRN (19:15)
[2024-10-06] MEDS ORDERED: GLUCAGON INJ 1MG VIAL SC PRN (19:15)
[2024-10-06] MEDS ORDERED: GLUCOSE 4 GM CHEW PO PRN (19:15)
[2024-10-06] MEDS: PANTOPRAZOLE 40MG VIAL IV SCH (20:04)
[2024-10-06] MEDS: INSULIN LISPRO (NovoLOG) PER UNIT SC SCH (21:00)
[2024-10-06 21:08] VITALS: BP 138/91; TEMP 102.8; O2SAT 99
[2024-10-06] MEDS: ACETAMINOPHEN 325 MG TAB PO PRN (21:20)
[2024-10-06] MEDS: TIMOLOL MALEATE 0.5% OPHTH SOLN 5 ML OU SCH (21:20)
[2024-10-06] MEDS: MORPHINE SULFATE TAB EXT REL 15 MG PO SCH (21:21)
[2024-10-06] MEDS: DULoxetine 30MG CAPSULE (CYMBALTA) PO SCH (21:30)
[2024-10-06 22:00] VITALS: O2SAT 94
[2024-10-06 22:29] VITALS: TEMP 103.1
[2024-10-06 23:00] VITALS: O2SAT 97
[2024-10-06 23:22] VITALS: BP 128/60; TEMP 102.8; O2SAT 96
[2024-10-07] VITALS (33 sets, daily range): BP systolic 110–151; BP diastolic 57–81; TEMP 98–103.5; O2SAT 91–100
[2024-10-07] MEDS: ACETAMINOPHEN *IV* 1,000 MG in IV 1 EA IV ONE (00:46)
[2024-10-07] MEDS: CEFEPIME HCL 2 GM in DEXTROSE 5% (D5W) ADV/MINI-BAG 50 ML IV SCH ×2 (05:14→14:37)
[2024-10-07 07:19] LABS: EOS % 0.2 % (0.0-3.0); HEMATOCRIT 29.5 % (42.0-52.0); HEMOGLOBIN 9.6 g/dl (13.5-17.5); LYMPH # 0.3 10^3/uL (1.5-5.0); LYMPH % 6.7 % (24.0-44.0); MEAN CORPUSCULAR HEMOGLOBIN 28.7 pg (27.0-33.0); MEAN CORPUSCULAR HGB CONC 32.5 g/dl (32.0-36.5); MEAN CORPUSCULAR VOLUME 88.1 fl (80.0-96.0); MONO % 0.4 % (2.0-8.0); NEUTROPHILS # 4.1 10^3/uL (1.5-8.5); NEUTROPHILS % 92.3 % (36.0-66.0); RED BLOOD COUNT 3.35 10^6/uL (4.30-6.10); WHITE BLOOD COUNT 4.5 10^3/uL (4.0-10.0)
[2024-10-07 07:23] LABS: PLATELET COUNT, AUTOMATED 34 10^3/uL (150-450)
[2024-10-07 07:41] LABS: BLOOD UREA NITROGEN 11 MG/DL (9-23); CALCIUM LEVEL 8.4 MG/DL (8.3-10.6); CARBON DIOXIDE LEVEL 26 MMOL/L (20-31); CHLORIDE LEVEL 98 MMOL/L (98-107); CREATININE FOR GFR 0.56 MG/DL (0.70-1.30); GLOMERULAR FILTRATION RATE > 60.0 (>49); GLUCOSE, FASTING 134 MG/DL (74-106); POTASSIUM SERUM 3.7 MMOL/L (3.5-5.1); SODIUM LEVEL 129 MMOL/L (136-145)
[2024-10-07] MEDS: INSULIN LISPRO (NovoLOG) PER UNIT SC SCH (08:42)
[2024-10-07] MEDS: ACETAMINOPHEN *IV* 1,000 MG in IV 1 EA IV PRN (08:42)
[2024-10-07] MEDS ORDERED: ENOXAPARIN 40MG/0.4ML SYRINGE (J1650 PER 10MG) SC SCH (09:00)
[2024-10-07 14:45] LABS: PROCALCITONIN 1.49 ng/ml
[2024-10-07] MEDS: HYDROMORPHONE HCL 0.5 MG/ 0.5 ML SYRINGE IV PRN (16:37)
[2024-10-07] MEDS: ONDANSETRON 4MG 2ML VIAL IV PRN (22:40)
[2024-10-07] MEDS ORDERED: MORPHINE SULFATE TAB EXT REL 30 MG PO ONE (23:35)
[2024-10-08] VITALS (14 sets, daily range): BP systolic 106–153; BP diastolic 54–72; TEMP 98–101.4; O2SAT 93–99
[2024-10-08 06:13] LABS: BASO % 0.3 % (0.0-1.0); EOS % 1.3 % (0.0-3.0); HEMATOCRIT 30.9 % (42.0-52.0); HEMOGLOBIN 10.3 g/dl (13.5-17.5); LYMPH # 0.3 10^3/uL (1.5-5.0); LYMPH % 10.9 % (24.0-44.0); MEAN CORPUSCULAR HEMOGLOBIN 29.3 pg (27.0-33.0); MEAN CORPUSCULAR HGB CONC 33.3 g/dl (32.0-36.5); NEUTROPHILS # 2.7 10^3/uL (1.5-8.5); NEUTROPHILS % 85.9 % (36.0-66.0); PLATELET COUNT, AUTOMATED 67 10^3/uL (150-450); RED BLOOD COUNT 3.51 10^6/uL (4.30-6.10); WHITE BLOOD COUNT 3.1 10^3/uL (4.0-10.0)
[2024-10-08 06:30] LABS: BLOOD UREA NITROGEN 8 MG/DL (9-23); CALCIUM LEVEL 8.6 MG/DL (8.3-10.6); CARBON DIOXIDE LEVEL 28 MMOL/L (20-31); CHLORIDE LEVEL 100 MMOL/L (98-107); CREATININE FOR GFR 0.54 MG/DL (0.70-1.30); GLOMERULAR FILTRATION RATE > 60.0 (>49); GLUCOSE, FASTING 127 MG/DL (74-106); POTASSIUM SERUM 3.5 MMOL/L (3.5-5.1); SODIUM LEVEL 134 MMOL/L (136-145)
[2024-10-08] MEDS: SENOKOT S TAB PO SCH (09:46)
[2024-10-08] MEDS: oxyCODONE 5MG TAB PO PRN (09:47)
[2024-10-08] MEDS: MORPHINE SULFATE TAB EXT REL 30 MG PO SCH (21:00)
[2024-10-09 03:50] VITALS: BP 131/73; TEMP 97.7; O2SAT 96
[2024-10-09 06:12] LABS: EOS # 0.1 10^3/uL (0.0-0.5); EOS % 2.8 % (0.0-3.0); HEMATOCRIT 29.6 % (42.0-52.0); HEMOGLOBIN 9.8 g/dl (13.5-17.5); LYMPH # 0.2 10^3/uL (1.5-5.0); LYMPH % 13.6 % (24.0-44.0); MEAN CORPUSCULAR HEMOGLOBIN 29.5 pg (27.0-33.0); MEAN CORPUSCULAR HGB CONC 33.1 g/dl (32.0-36.5); MEAN CORPUSCULAR VOLUME 89.2 fl (80.0-96.0); MONO # 0.1 10^3/uL (0.0-0.8); MONO % 3.4 % (2.0-8.0); NEUTROPHILS # 1.4 10^3/uL (1.5-8.5); NEUTROPHILS % 77.4 % (36.0-66.0); RED BLOOD COUNT 3.32 10^6/uL (4.30-6.10); WHITE BLOOD COUNT 1.8 10^3/uL (4.0-10.0)
[2024-10-09 06:23] LABS: BLOOD UREA NITROGEN 7 MG/DL (9-23); CALCIUM LEVEL 8.3 MG/DL (8.3-10.6); CARBON DIOXIDE LEVEL 28 MMOL/L (20-31); CHLORIDE LEVEL 97 MMOL/L (98-107); CREATININE FOR GFR 0.49 MG/DL (0.70-1.30); GLOMERULAR FILTRATION RATE > 60.0 (>49); GLUCOSE, FASTING 139 MG/DL (74-106); POTASSIUM SERUM 3.7 MMOL/L (3.5-5.1); SODIUM LEVEL 132 MMOL/L (136-145)
[2024-10-09 07:29] VITALS: BP 119/62; TEMP 97.7; O2SAT 99
[2024-10-09 10:00] VITALS: BP 127/82; TEMP 97.1; O2SAT 99
[2024-10-09 12:00] VITALS: BP 123/80; TEMP 97.7; O2SAT 96
[2024-10-09] MEDS: cefTRIAXone SOD 2 GM in DEXTROSE 5% (D5W) ADV/MINI-BAG 50 ML IV SCH (14:57)
[2024-10-09] MEDS: MAALOX 30 ML SUSP *UDC PO PRN (14:57)
[2024-10-09 20:00] VITALS: BP 112/74; TEMP 97.9; O2SAT 90
[2024-10-09] MEDS: LOPERAMIDE 2 MG CAPLET PO ONE (23:12)
[2024-10-10 04:00] VITALS: BP 129/86; TEMP 97.7; O2SAT 99
[2024-10-10 06:45] LABS: BASO % 0.9 % (0.0-1.0); EOS % 1.7 % (0.0-3.0); HEMATOCRIT 28.9 % (42.0-52.0); HEMOGLOBIN 9.7 g/dl (13.5-17.5); LYMPH # 0.3 10^3/uL (1.5-5.0); LYMPH % 27.8 % (24.0-44.0); MEAN CORPUSCULAR HEMOGLOBIN 29.6 pg (27.0-33.0); MEAN CORPUSCULAR HGB CONC 33.6 g/dl (32.0-36.5); MEAN CORPUSCULAR VOLUME 88.1 fl (80.0-96.0); MONO # 0.2 10^3/uL (0.0-0.8); MONO % 14.8 % (2.0-8.0); NEUTROPHILS % 52.2 % (36.0-66.0); RED BLOOD COUNT 3.28 10^6/uL (4.30-6.10); WHITE BLOOD COUNT 1.2 10^3/uL (4.0-10.0)
[2024-10-10 07:09] LABS: BLOOD UREA NITROGEN 5 MG/DL (9-23); CALCIUM LEVEL 8.4 MG/DL (8.3-10.6); CARBON DIOXIDE LEVEL 30 MMOL/L (20-31); CHLORIDE LEVEL 95 MMOL/L (98-107); CREATININE FOR GFR 0.57 MG/DL (0.70-1.30); GLOMERULAR FILTRATION RATE > 60.0 (>49); GLUCOSE, FASTING 122 MG/DL (74-106); POTASSIUM SERUM 3.4 MMOL/L (3.5-5.1); SODIUM LEVEL 130 MMOL/L (136-145)
[2024-10-10 07:17] LABS: NEUTROPHILS # 0.6 10^3/uL (1.5-8.5)
[2024-10-10 07:24] LABS: PROCALCITONIN 0.37 ng/ml
[2024-10-10] MEDS: LACTOBACILLUS ACIDOPHILUS CAP (BACID) PO SCH (08:11)
[2024-10-10] MEDS ORDERED: RISATAB3 PO (10:43)
[2024-10-10] MEDS ORDERED: CEFD1CAP9 PO (10:43)
[2024-10-10] MEDS: FILGRASTIM 480 MCG/0.8 ML SYRINGE **SC ADMINISTRATION ONLY SC SCH (10:51)
[2024-10-10 12:00] VITALS: BP 127/75; TEMP 96.8; O2SAT 97
[2024-10-10] MEDS: SODIUM CHLORIDE 0.9% INJ 10 ML SYR IV SCH (13:52)
[2024-10-10] MEDS: MORPHINE SULFATE TAB IMM. REL. 15 MG PO ONE (14:10)
== END 2024-10-10 14:35 | disposition home or self-care (01) | DRG 720 ==
LOC: M ED 13:38 → EDBD 13:38 → M ED INP 18:22 → M PCU 20:59 → M MSPAV 10-09 10:04
PROVIDERS: ADMIT Internal Medicine Nephrology; ATTEND Internal Medicine Nephrology
DX: A41.51 Sepsis due to Escherichia coli [E. coli] (principal); D61.810 Antineoplastic chemotherapy induced pancytopenia; C25.1 Malignant neoplasm of body of pancreas; K76.0 Fatty (change of) liver, not elsewhere classified; E87.1 Hypo-osmolality and hyponatremia; G62.0 Drug-induced polyneuropathy; J43.9 Emphysema, unspecified; K21.9 Gastro-esophageal reflux disease without esophagitis; G89.29 Other chronic pain; D69.59 Other secondary thrombocytopenia; M54.9 Dorsalgia, unspecified; E11.9 Type 2 diabetes mellitus without complications; E78.5 Hyperlipidemia, unspecified; G47.33 Obstructive sleep apnea (adult) (pediatric); F41.9 Anxiety disorder, unspecified; K57.90 Diverticulosis of intestine, part unspecified, without perforation or abscess without bleeding; T45.1X5A Adverse effect of antineoplastic and immunosuppressive drugs, initial encounter; H40.9 Unspecified glaucoma; K42.9 Umbilical hernia without obstruction or gangrene; K40.20 Bilateral inguinal hernia, without obstruction or gangrene, not specified as recurrent; G89.3 Neoplasm related pain (acute) (chronic); R11.2 Nausea with vomiting, unspecified; Z79.69 Long term (current) use of other immunomodulators and immunosuppressants; Z79.899 Other long term (current) drug therapy; Z95.828 Presence of other vascular implants and grafts; Z86.711 Personal history of pulmonary embolism; Z79.84 Long term (current) use of oral hypoglycemic drugs; Z88.5 Allergy status to narcotic agent; Z88.8 Allergy status to other drugs, medicaments and biological substances

== ENCOUNTER 2024-10-16 11:29 | Emergency (ER) | payer BC ==
[~2024-10-16] VITALS: Ht 175.3 cm; Wt 90.9 kg
[~2024-10-16 11:29] MED LIST changes: +CEFD1CAP9 PO; +DULO30CA47 PO; +DULO60CA35 PO; +MM S100C PO; +MORP-69 PO; +OMEP40CA5 PO; +RISATAB3 PO
[2024-10-16 11:37] VITALS: TEMP 98.2
[2024-10-16 12:30] LABS: HEMATOCRIT 35.1 % (42.0-52.0); HEMOGLOBIN 11.5 g/dl (13.5-17.5); MEAN CORPUSCULAR HEMOGLOBIN 29.2 pg (27.0-33.0); MEAN CORPUSCULAR HGB CONC 32.8 g/dl (32.0-36.5); MEAN CORPUSCULAR VOLUME 89.1 fl (80.0-96.0); PLATELET COUNT, AUTOMATED 141 10^3/uL (150-450); RED BLOOD COUNT 3.94 10^6/uL (4.30-6.10); WHITE BLOOD COUNT 12.4 10^3/uL (4.0-10.0)
[2024-10-16 12:51] LABS: ALBUMIN 2.4 G/DL (3.2-5.2); ALKALINE PHOSPHATASE 104 U/L (40-129); ALT/SGPT 15 U/L (7.0-40); AST/SGOT 22 U/L (<34); BILIRUBIN,DIRECT 0.2 MG/DL (<0.4); BILIRUBIN,TOTAL 0.4 MG/DL (0.3-1.2); BLOOD UREA NITROGEN 9 MG/DL (9-23); CALCIUM LEVEL 8.7 MG/DL (8.3-10.6); CARBON DIOXIDE LEVEL 27 MMOL/L (20-31); CHLORIDE LEVEL 95 MMOL/L (98-107); CREATININE FOR GFR 0.54 MG/DL (0.70-1.30); GLOMERULAR FILTRATION RATE > 60.0 (>49); GLUCOSE, FASTING 128 MG/DL (74-106); POTASSIUM SERUM 4.4 MMOL/L (3.5-5.1); SODIUM LEVEL 128 MMOL/L (136-145); TOTAL PROTEIN 6.7 G/DL (5.7-8.2)
[2024-10-16 12:54] LABS: ATYPICAL LYMPH 1 % (0-5); EOSINOPHILS 1 % (0-3); LYMPHOCYTES 8 % (16-44); METAMYELOCYTES 1 % (0-0); MONOCYTES 16 % (0-5); MYELOCYTES 1 % (0-0); NEUTROPHILS 68 % (28-66)
[2024-10-16 12:56] LABS: ANISOCYTOSIS 1+; PLATELET ESTIMATE DECREASED (NORMAL)
[2024-10-16 13:01] LABS: POLYCHROMASIA 1+; TEAR DROP CELLS 1+
[2024-10-16] MEDS ORDERED: ISOVUE-370 76% 100ML VIAL As Ordered ONE (13:04)
[2024-10-16] MEDS ORDERED: LevoFLOXacin IV 750 MG in IV 1 EA IV ONE (16:15)
[2024-10-16] MEDS ORDERED: CIPR-249 PO (16:34)
[2024-10-16] MEDS ORDERED: METR-265 PO (16:34)
[2024-10-16] MEDS: CIPROFLOXACIN 400 MG in IV 1 EA IV ONE (16:48)
[2024-10-16 17:45] VITALS: O2SAT 95
[2024-10-16 17:46] VITALS: BP 131/64
[2024-10-16] MEDS: metroNIDAZOLE 500 MG in IV 1 EA IV ONE (17:58)
== END 2024-10-16 19:04 | disposition home or self-care (01) ==
LOC: M ED 11:29 → EDBD 11:29 → M ED 19:04
DX: R06.02 Shortness of breath (principal); R16.0 Hepatomegaly, not elsewhere classified; Z88.8 Allergy status to other drugs, medicaments and biological substances; Z79.2 Long term (current) use of antibiotics; Z79.84 Long term (current) use of oral hypoglycemic drugs; Z79.899 Other long term (current) drug therapy
CPT/HCPCS: 71045; 71275; 76705; 80048; 80076; 81001; 83880; 84484; 85025; 87040; 87486; 87581; 87633; 87798; 93005; 93041; 94760; 96374; 96375; 99285; J0744; J1836; Q9967

== ENCOUNTER 2024-11-13 18:10 | Emergency (ER) | payer BC ==
[~2024-11-13] VITALS: Ht 177.8 cm; Wt 86.1 kg
[~2024-11-13 18:10] MED LIST changes: +CIPR-249 PO; +METR-265 PO
[2024-11-13 18:19] VITALS: BP 125/63; TEMP 97.9; O2SAT 97
== END 2024-11-13 18:33 | disposition left against medical advice (07) ==
LOC: M ED 18:10
DX: Z53.21 Procedure and treatment not carried out due to patient leaving prior to being seen by health care provider (principal)

== ENCOUNTER 2024-11-28 11:42 | Emergency (ER) | payer BC ==
[~2024-11-28] VITALS: Ht 177.8 cm; Wt 81.9 kg
[2024-11-28 12:52] LABS: BASO # 0.1 10^3/uL (0.0-0.2); BASO % 0.4 % (0.0-1.0); EOS # 0.3 10^3/uL (0.0-0.5); EOS % 1.9 % (0.0-3.0); HEMATOCRIT 40.9 % (42.0-52.0); HEMOGLOBIN 13.1 g/dl (13.5-17.5); LYMPH # 2.1 10^3/uL (1.5-5.0); MEAN CORPUSCULAR HEMOGLOBIN 29.1 pg (27.0-33.0); MEAN CORPUSCULAR VOLUME 90.9 fl (80.0-96.0); MONO # 0.8 10^3/uL (0.0-0.8); MONO % 5.6 % (2.0-8.0); NEUTROPHILS # 11.5 10^3/uL (1.5-8.5); NEUTROPHILS % 77.7 % (36.0-66.0); PLATELET COUNT, AUTOMATED 341 10^3/uL (150-450); WHITE BLOOD COUNT 14.8 10^3/uL (4.0-10.0)
[2024-11-28 13:19] LABS: LIPASE 17 U/L (12-53)
[2024-11-28 13:27] LABS: ALBUMIN 3.5 G/DL (3.2-5.2); ALKALINE PHOSPHATASE 108 U/L (40-129); ALT/SGPT 11 U/L (7.0-40); AST/SGOT 20 U/L (<34); BILIRUBIN,DIRECT 0.2 MG/DL (<0.4); BILIRUBIN,TOTAL 0.5 MG/DL (0.3-1.2); BLOOD UREA NITROGEN 16 MG/DL (9-23); CALCIUM LEVEL 10.2 MG/DL (8.3-10.6); CARBON DIOXIDE LEVEL 30 MMOL/L (20-31); CHLORIDE LEVEL 96 MMOL/L (98-107); GLOMERULAR FILTRATION RATE > 60.0 (>49); GLUCOSE, FASTING 161 MG/DL (74-106); POTASSIUM SERUM 4.4 MMOL/L (3.5-5.1); SODIUM LEVEL 134 MMOL/L (136-145); TOTAL PROTEIN 8.3 G/DL (5.7-8.2)
[2024-11-28 15:43] LABS: KETONE, URINE AUTO RFX NEGATIVE (NEGATIVE); LEUKOCYTE ESTERASE UR AUTO RFX NEGATIVE (NEGATIVE); MUCUS, URINE RFX SMALL (NEGATIVE); NITRITE, URINE AUTO RFX NEGATIVE (NEGATIVE); RBC, URINE AUTO RFX TNTC /HPF (0-3); SQUAM EPITHELIAL CELL UR AURFX 0 /HPF (0-6); WBC, URINE AUTO RFX 0 /HPF (0-3)
[2024-11-28] MEDS: NS (Normal Saline) 0.9% 1,000 ML IV ONE (16:02)
[2024-11-28] MEDS ORDERED: ISOVUE-370 76% 100ML VIAL As Ordered ONE (16:18)
[2024-11-28] MEDS ORDERED: PROC10TA5 PO (17:27)
[2024-11-28] MEDS: SODIUM CHLORIDE 0.9% INJ 10 ML SYR IV PRN (17:41)
[2024-11-28] MEDS: PROCHLORPERAZINE 5MG TAB PO ONE (17:48)
[2024-11-28 17:50] VITALS: BP 146/73; TEMP 97.2; O2SAT 98
[2024-11-28] MEDS ORDERED: GASTROGRAFIN SOLUTION 30ML PO SCH (18:00)
== END 2024-11-28 18:04 | disposition home or self-care (01) ==
LOC: M ED 11:42
DX: C25.9 Malignant neoplasm of pancreas, unspecified (principal); C78.7 Secondary malignant neoplasm of liver and intrahepatic bile duct; E78.5 Hyperlipidemia, unspecified; Z88.8 Allergy status to other drugs, medicaments and biological substances; Z79.2 Long term (current) use of antibiotics; Z79.84 Long term (current) use of oral hypoglycemic drugs; Z79.899 Other long term (current) drug therapy
CPT/HCPCS: 51701; 71045; 74177; 80048; 80076; 81001; 83605; 83690; 85025; 87040; 87486; 87581; 87633; 87798; 93041; 94760; 96361; 96374; 99285; J1642; Q9967

== ENCOUNTER 2024-12-11 08:49 | Observation (INO) | payer BC ==
[~2024-12-11] VITALS: Ht 177.8 cm; Wt 77.4 kg
[2024-12-11 09:41] LABS: VENOUS BASE EXCESS 3.3 (-2.0-2.0); VENOUS HCO3 27.6 MMOL/L (23.0-27.0); VENOUS O2 SATURATION 96.9 % (60.0-80.0); VENOUS PARTIAL PRESSURE O2 86.2 mmHg (30.0-50.0); VENOUS PH 7.446 UNITS (7.330-7.430); VENOUS STANDARD HCO3 27.4 MMOL/L; VENOUS TOTAL CO2 28.9 MMOL/L (24.0-28.0)
[2024-12-11 09:48] LABS: BASO % 0.3 % (0.0-1.0); EOS # 0.2 10^3/uL (0.0-0.5); EOS % 1.5 % (0.0-3.0); HEMOGLOBIN 12.2 g/dl (13.5-17.5); LYMPH # 1.9 10^3/uL (1.5-5.0); LYMPH % 16.1 % (24.0-44.0); MEAN CORPUSCULAR HEMOGLOBIN 29.5 pg (27.0-33.0); MEAN CORPUSCULAR VOLUME 89.6 fl (80.0-96.0); MONO # 0.7 10^3/uL (0.0-0.8); MONO % 6.3 % (2.0-8.0); NEUTROPHILS # 8.8 10^3/uL (1.5-8.5); NEUTROPHILS % 75.5 % (36.0-66.0); PLATELET COUNT, AUTOMATED 290 10^3/uL (150-450); RED BLOOD COUNT 4.13 10^6/uL (4.30-6.10); WHITE BLOOD COUNT 11.7 10^3/uL (4.0-10.0)
[2024-12-11] MEDS: NS 500 ML IV ONE (10:12)
[2024-12-11 10:13] LABS: ETHYL ALCOHOL (ETHANOL) 0.005 % (0.000-0.010)
[2024-12-11 10:14] LABS: SALICYLATE LEVEL < 3.0 MG/DL (<30)
[2024-12-11 10:16] LABS: ALBUMIN 3.1 G/DL (3.2-5.2); ALKALINE PHOSPHATASE 102 U/L (40-129); ALT/SGPT 14 U/L (7.0-40); AST/SGOT 14 U/L (<34); BILIRUBIN,DIRECT 0.3 MG/DL (<0.4); BILIRUBIN,TOTAL 0.7 MG/DL (0.3-1.2); BLOOD UREA NITROGEN 17 MG/DL (9-23); CALCIUM LEVEL 9.8 MG/DL (8.3-10.6); CARBON DIOXIDE LEVEL 30 MMOL/L (20-31); CHLORIDE LEVEL 100 MMOL/L (98-107); CREATININE FOR GFR 0.61 MG/DL (0.70-1.30); GLOMERULAR FILTRATION RATE > 60.0 (>49); GLUCOSE, FASTING 145 MG/DL (74-106); POTASSIUM SERUM 3.9 MMOL/L (3.5-5.1); SODIUM LEVEL 136 MMOL/L (136-145); TOTAL PROTEIN 7.1 G/DL (5.7-8.2)
[2024-12-11] MEDS ORDERED: OMEP-173 PO (10:17)
[2024-12-11] MEDS ORDERED: ZOLP10TA2 PO (10:17)
[2024-12-11] MEDS ORDERED: POLY17PO18 PO (10:17)
[2024-12-11] MEDS ORDERED: CIPR500T39 PO (10:17)
[2024-12-11 10:18] LABS: THYROID STIMULATING HORMONE 0.513 uIU/ML (0.55-4.78)
[2024-12-11 10:20] LABS: KETONE, URINE AUTO RFX TRACE mg/dL (NEGATIVE); LEUKOCYTE ESTERASE UR AUTO RFX TRACE (NEGATIVE); MUCUS, URINE RFX LARGE (NEGATIVE); NITRITE, URINE AUTO RFX NEGATIVE (NEGATIVE); RBC, URINE AUTO RFX 3 /HPF (0-3); SQUAM EPITHELIAL CELL UR AURFX 0 /HPF (0-6); WBC, URINE AUTO RFX 3 /HPF (0-3)
[2024-12-11] MEDS ORDERED: HOME MED LIST COMPLETE! XX SCH (10:20)
[2024-12-11 10:48] LABS: AMPHETAMINES LEVEL URINE NEGATIVE (NEGATIVE); BENZODIAZEPINES URINE NEGATIVE (NEGATIVE); METHADONE URINE NEGATIVE (NEGATIVE); PHENCYCLIDINE URINE NEGATIVE (NEGATIVE)
[2024-12-11 10:49] LABS: BARBITURATES URINE NEGATIVE (NEGATIVE); COCAINE METABOLITE URINE NEGATIVE (NEGATIVE)
[2024-12-11 10:50] LABS: CANNABINOIDS URINE POSITIVE (NEGATIVE); OPIATES URINE POSITIVE (NEGATIVE)
[2024-12-11] MEDS ORDERED: ISOVUE-370 76% 100ML VIAL As Ordered ONE (11:09)
[2024-12-11] MEDS: METOPROLOL TART 25 MG TABLET PO SCH (12:00)
[2024-12-11] MEDS: MORPHINE 2 MG/ML 1ML VIAL IV ONE (13:20)
[2024-12-11] MEDS ORDERED: MIRTAZAPINE 7.5MG PER 1/2 TABLET PO PRN (13:35)
[2024-12-11] MEDS: MORPHINE SULFATE TAB EXT REL 15 MG PO ONE (13:37)
[2024-12-11] MEDS: ONDANSETRON 4MG 2ML VIAL IV STA (13:37)
[2024-12-11] MEDS: ACETAMINOPHEN 325 MG TAB PO ONE (13:37)
[2024-12-11 14:56] LABS: FREE T4 1.51 NG/DL (0.89-1.76)
[2024-12-11 15:20] LABS: FREE T3 3.3 PG/ML (2.3-4.2)
[2024-12-11 15:25] VITALS: BP 140/90; TEMP 97.3; O2SAT 98
[2024-12-11] MEDS: LR 1,000 ML IV SCH (16:40)
[2024-12-11] MEDS: CIPROFLOXACIN 500MG TABLET PO SCH (18:24)
[2024-12-11] MEDS: metFORMIN (GLUCOPHAGE) 500MG TAB PO SCH (18:25)
[2024-12-11] MEDS ORDERED: PROHANCE 279.3MG/ML 15ML VIAL As Ordered ONE (19:21)
[2024-12-11] MEDS: DOCUSATE SODIUM 100MG CAPSULE PO SCH (20:05)
[2024-12-11] MEDS: DULoxetine 30MG CAPSULE (CYMBALTA) PO SCH (20:05)
[2024-12-11] MEDS: SIMVASTATIN 20 MG TAB PO SCH (20:05)
[2024-12-11] MEDS: TIMOLOL MALEATE 0.5% OPHTH SOLN 5 ML OU SCH (20:06)
[2024-12-11] MEDS: MORPHINE SULFATE TAB EXT REL 15 MG PO SCH (20:06)
[2024-12-11 20:15] VITALS: BP 152/66; TEMP 97.2; O2SAT 96
[2024-12-11] MEDS: MIRTAZAPINE 15 MG TAB PO PRN (21:27)
[2024-12-11] MEDS: PROCHLORPERAZINE 5MG TAB PO PRN (21:27)
[2024-12-11] MEDS: HYDROmorphone 2 MG TAB PO PRN (23:37)
[2024-12-12 04:00] VITALS: BP 156/76; TEMP 97.5; O2SAT 95
[2024-12-12 05:57] VITALS: BP 156/76
[2024-12-12] MEDS ORDERED: MIRT-89 PO (08:59)
[2024-12-12] MEDS ORDERED: PROC5TAB57 PO (08:59)
[2024-12-12] MEDS: MIRALAX *UNIT DOSE* 17GM PACKET PO SCH (09:00)
[2024-12-12] MEDS: DICLOFENAC EPOLAMINE 1.3% PATCH TOP SCH (09:00)
[2024-12-12] MEDS ORDERED: DICL1PAT6 TOP (09:02)
[2024-12-12] MEDS ORDERED: TRAN1DIS4 TOP (09:03)
[2024-12-12] MEDS: SCOPOLAMINE 1MG TRANSDERMAL PATCH TOP ONE (09:12)
[2024-12-12] MEDS: OMEPRAZOLE 20MG CAP PO SCH (09:12)
[2024-12-12 09:13] VITALS: O2SAT 96
[2024-12-12] MEDS: LR 1,000 ML IV ONE (09:14)
[2024-12-15] MEDS ORDERED: PROC10TA5 PO (16:01)
[2024-12-15] MEDS ORDERED: SENN-186 PO (16:01)
[2024-12-15] MEDS ORDERED: OMEP40CA4 PO (16:01)
[2024-12-15] MEDS ORDERED: DULO1CAP6 PO (16:01)
[2024-12-15] MEDS ORDERED: OLAN15TA10 PO (16:01)
== END 2024-12-12 10:53 | disposition home or self-care (01) ==
LOC: M ED 08:49 → M ED INP 13:30 → INTOOBSV 13:30 → M MSPAV 15:30
PROVIDERS: ADMIT General Practice; ATTEND General Practice
DX: G93.41 Metabolic encephalopathy (principal); E86.0 Dehydration; R63.8 Other symptoms and signs concerning food and fluid intake; R41.82 Altered mental status, unspecified; R62.7 Adult failure to thrive; M79.2 Neuralgia and neuritis, unspecified; M54.9 Dorsalgia, unspecified; G89.29 Other chronic pain; C25.2 Malignant neoplasm of tail of pancreas; Z86.19 Personal history of other infectious and parasitic diseases; I16.0 Hypertensive urgency; G47.00 Insomnia, unspecified; R11.0 Nausea; R94.6 Abnormal results of thyroid function studies; R53.1 Weakness; R26.81 Unsteadiness on feet; R00.0 Tachycardia, unspecified; R44.3 Hallucinations, unspecified; E11.9 Type 2 diabetes mellitus without complications; E78.5 Hyperlipidemia, unspecified; G47.33 Obstructive sleep apnea (adult) (pediatric); F41.9 Anxiety disorder, unspecified; K76.0 Fatty (change of) liver, not elsewhere classified; Z86.711 Personal history of pulmonary embolism; Z87.891 Personal history of nicotine dependence; Z80.0 Family history of malignant neoplasm of digestive organs; Z88.8 Allergy status to other drugs, medicaments and biological substances; Z88.4 Allergy status to anesthetic agent; Z79.899 Other long term (current) drug therapy; Z79.2 Long term (current) use of antibiotics; Z79.84 Long term (current) use of oral hypoglycemic drugs; Z79.891 Long term (current) use of opiate analgesic
CPT/HCPCS: 70450; 70553; 71045; 71275; 74177; 80047; 80048; 80076; 80143; 80307; 81001; 82077; 82140; 82803; 83605; 84439; 84443; 84481; 85025; 87040; 87086; 93005; 93041; 94760; 96361; 96374; 99285; A9576; J2405; Q9967

== ENCOUNTER → 2024-12-15 | Outpatient (CLI) | payer BC ==
[~2024-12-15] VITALS: Ht 177.8 cm; Wt 79.0 kg
[~2024-12-15] MED LIST changes: +CIPR500T39 PO; +DICL1PAT6 TOP; +MIRT-89 PO; +OLAN15TA10 PO; +OMEP-173 PO; +OMEP40CA4 PO; +POLY17PO18 PO; +PROC5TAB57 PO; +SENN-186 PO; +TRAN1DIS4 TOP; +ZOLP10TA2 PO
[2024-12-15 14:23] VITALS: BP 172/104; O2SAT 96
== END ==
LOC: M PAL 14:04
PROVIDERS: ATTEND Family Medicine
DX: Z51.5 Encounter for palliative care (principal); C25.2 Malignant neoplasm of tail of pancreas; C78.7 Secondary malignant neoplasm of liver and intrahepatic bile duct; C78.6 Secondary malignant neoplasm of retroperitoneum and peritoneum; R52 Pain, unspecified; R11.0 Nausea; G47.00 Insomnia, unspecified; K21.9 Gastro-esophageal reflux disease without esophagitis; Z79.84 Long term (current) use of oral hypoglycemic drugs; Z79.891 Long term (current) use of opiate analgesic; Z79.899 Other long term (current) drug therapy; Z88.5 Allergy status to narcotic agent; Z88.8 Allergy status to other drugs, medicaments and biological substances; Z92.21 Personal history of antineoplastic chemotherapy; Z92.3 Personal history of irradiation

== ENCOUNTER → 2024-12-18 | Outpatient (CLI) | payer BC ==
[2024-12-18 12:28] LABS: BASO # 0.1 10^3/uL (0.0-0.2); BASO % 0.7 % (0.0-1.0); EOS # 0.4 10^3/uL (0.0-0.5); EOS % 4.4 % (0.0-3.0); HEMATOCRIT 39.5 % (42.0-52.0); HEMOGLOBIN 12.3 g/dl (13.5-17.5); LYMPH % 20.2 % (24.0-44.0); MEAN CORPUSCULAR HGB CONC 31.1 g/dl (32.0-36.5); MEAN CORPUSCULAR VOLUME 93.2 fl (80.0-96.0); MONO # 0.6 10^3/uL (0.0-0.8); MONO % 6.3 % (2.0-8.0); NEUTROPHILS # 6.8 10^3/uL (1.5-8.5); NEUTROPHILS % 68.1 % (36.0-66.0); PLATELET COUNT, AUTOMATED 282 10^3/uL (150-450); RED BLOOD COUNT 4.24 10^6/uL (4.30-6.10)
== END ==
LOC: M LAB 12:13
PROVIDERS: ATTEND Internal Medicine Medical Oncology
DX: C25.2 Malignant neoplasm of tail of pancreas (principal)

== ENCOUNTER → 2024-12-24 | Outpatient (REF) | payer BC ==
[2024-12-24 17:38] LABS: BASO % 0.1 % (0.0-1.0); EOS # 0.1 10^3/uL (0.0-0.5); EOS % 0.6 % (0.0-3.0); HEMATOCRIT 34.2 % (42.0-52.0); HEMOGLOBIN 10.8 g/dl (13.5-17.5); LYMPH # 0.6 10^3/uL (1.5-5.0); LYMPH % 6.3 % (24.0-44.0); MEAN CORPUSCULAR HEMOGLOBIN 28.7 pg (27.0-33.0); MEAN CORPUSCULAR HGB CONC 31.6 g/dl (32.0-36.5); MONO # 0.1 10^3/uL (0.0-0.8); MONO % 1.3 % (2.0-8.0); NEUTROPHILS # 9.3 10^3/uL (1.5-8.5); NEUTROPHILS % 91.3 % (36.0-66.0); PLATELET COUNT, AUTOMATED 196 10^3/uL (150-450); RED BLOOD COUNT 3.76 10^6/uL (4.30-6.10); WHITE BLOOD COUNT 10.1 10^3/uL (4.0-10.0)
[2024-12-24 17:56] LABS: ALBUMIN 2.6 G/DL (3.2-5.2); ALKALINE PHOSPHATASE 121 U/L (40-129); ALT/SGPT 14 U/L (7.0-40); AST/SGOT 22 U/L (<34); BILIRUBIN,TOTAL 0.9 MG/DL (0.3-1.2); BLOOD UREA NITROGEN 10 MG/DL (9-23); CALCIUM LEVEL 9.3 MG/DL (8.3-10.6); CARBON DIOXIDE LEVEL 32 MMOL/L (20-31); CHLORIDE LEVEL 90 MMOL/L (98-107); CREATININE FOR GFR 0.52 MG/DL (0.70-1.30); GLOMERULAR FILTRATION RATE > 60.0 (>49); GLUCOSE, FASTING 138 MG/DL (74-106); POTASSIUM SERUM 3.8 MMOL/L (3.5-5.1); SODIUM LEVEL 131 MMOL/L (136-145); TOTAL PROTEIN 6.7 G/DL (5.7-8.2)
== END ==
LOC: M LABWUC 16:24
PROVIDERS: ATTEND Internal Medicine Medical Oncology
DX: C25.2 Malignant neoplasm of tail of pancreas (principal)

== ENCOUNTER 2025-01-15 13:41 | Observation (INO) | payer BC ==
[~2025-01-15] VITALS: Ht 177.8 cm; Wt 76.7 kg
[2025-01-15 14:26] LABS: BASO # 0.1 10^3/uL (0.0-0.2); BASO % 0.4 % (0.0-1.0); EOS # 0.1 10^3/uL (0.0-0.5); EOS % 0.5 % (0.0-3.0); HEMATOCRIT 34.6 % (42.0-52.0); LYMPH % 8.9 % (24.0-44.0); MEAN CORPUSCULAR HEMOGLOBIN 29.8 pg (27.0-33.0); MEAN CORPUSCULAR HGB CONC 31.8 g/dl (32.0-36.5); MEAN CORPUSCULAR VOLUME 93.8 fl (80.0-96.0); MONO # 1.6 10^3/uL (0.0-0.8); MONO % 7.2 % (2.0-8.0); NEUTROPHILS # 17.6 10^3/uL (1.5-8.5); NEUTROPHILS % 79.6 % (36.0-66.0); PLATELET COUNT, AUTOMATED 238 10^3/uL (150-450); RED BLOOD COUNT 3.69 10^6/uL (4.30-6.10); WHITE BLOOD COUNT 22.1 10^3/uL (4.0-10.0)
[2025-01-15] MEDS: NS (Normal Saline) 0.9% 1,000 ML IV SCH (14:35)
[2025-01-15 15:11] LABS: ALBUMIN 2.5 G/DL (3.2-5.2); ALKALINE PHOSPHATASE 167 U/L (40-129); ALT/SGPT 12 U/L (7.0-40); AST/SGOT 19 U/L (<34); BILIRUBIN,DIRECT 0.1 MG/DL (<0.4); BILIRUBIN,TOTAL 0.3 MG/DL (0.3-1.2); BLOOD UREA NITROGEN < 5 MG/DL (9-23); CALCIUM LEVEL 8.2 MG/DL (8.3-10.6); CARBON DIOXIDE LEVEL 30 MMOL/L (20-31); CHLORIDE LEVEL 96 MMOL/L (98-107); CREATININE FOR GFR 0.64 MG/DL (0.70-1.30); GLOMERULAR FILTRATION RATE > 60.0 (>49); GLUCOSE, FASTING 128 MG/DL (74-106); POTASSIUM SERUM 4.1 MMOL/L (3.5-5.1); SODIUM LEVEL 135 MMOL/L (136-145)
[2025-01-15 15:33] LABS: KETONE, URINE AUTO RFX NEGATIVE (NEGATIVE); LEUKOCYTE ESTERASE UR AUTO RFX NEGATIVE (NEGATIVE); NITRITE, URINE AUTO RFX NEGATIVE (NEGATIVE); RBC, URINE AUTO RFX 136 /HPF (0-3); SQUAM EPITHELIAL CELL UR AURFX 0 /HPF (0-6)
[2025-01-15 15:34] LABS: WBC, URINE AUTO RFX 46 /HPF (0-3)
[2025-01-15] MEDS: PIPERACILLIN/TAZOBACTAM SOD 4.5 GM in DEXTROSE 5% (D5W) ADV/MINI-BAG 50 ML IV ONE (16:44)
[2025-01-15 21:30] VITALS: BP 131/68; TEMP 97.5; O2SAT 99
[2025-01-15] MEDS ORDERED: DULO1CAP5 PO (22:37)
[2025-01-15] MEDS ORDERED: ACET-1349 PO (22:37)
[2025-01-15] MEDS ORDERED: MOTR200T44 PO (22:41)
[2025-01-15] MEDS ORDERED: HOME MED LIST COMPLETE! XX SCH (22:45)
[2025-01-16] MEDS: AMPICILLIN SOD/SULBACTAM SOD 3 GM in DEXTROSE 5% (D5W) MINI-BAG PLU 100 ML IV SCH (00:10)
[2025-01-16] MEDS: RAMELTEON 8 MG TAB (ROZEREM) PO PRN (00:42)
[2025-01-16] MEDS: ACETAMINOPHEN 325 MG TAB PO PRN (01:40)
[2025-01-16 04:02] VITALS: BP 127/89; TEMP 98.1; O2SAT 96
[2025-01-16] MEDS ORDERED: MIRT-11 PO (05:03)
[2025-01-16 05:57] LABS: HEMATOCRIT 33.9 % (42.0-52.0); HEMOGLOBIN 10.8 g/dl (13.5-17.5); MEAN CORPUSCULAR HGB CONC 31.9 g/dl (32.0-36.5); MEAN CORPUSCULAR VOLUME 91.1 fl (80.0-96.0); PLATELET COUNT, AUTOMATED 269 10^3/uL (150-450); RED BLOOD COUNT 3.72 10^6/uL (4.30-6.10)
[2025-01-16 06:27] LABS: ALBUMIN 2.4 G/DL (3.2-5.2); ALKALINE PHOSPHATASE 159 U/L (40-129); ALT/SGPT 11 U/L (7.0-40); AST/SGOT 17 U/L (<34); BILIRUBIN,TOTAL 0.4 MG/DL (0.3-1.2); BLOOD UREA NITROGEN < 5 MG/DL (9-23); CALCIUM LEVEL 8.3 MG/DL (8.3-10.6); CARBON DIOXIDE LEVEL 28 MMOL/L (20-31); CHLORIDE LEVEL 98 MMOL/L (98-107); CREATININE FOR GFR 0.57 MG/DL (0.70-1.30); GLOMERULAR FILTRATION RATE > 60.0 (>49); GLUCOSE, FASTING 142 MG/DL (74-106); MAGNESIUM LEVEL 1.5 MG/DL (1.8-2.4); POTASSIUM SERUM 3.6 MMOL/L (3.5-5.1); PROCALCITONIN 0.13 ng/ml; SODIUM LEVEL 136 MMOL/L (136-145); TOTAL PROTEIN 5.8 G/DL (5.7-8.2)
[2025-01-16 08:02] VITALS: BP 164/68; TEMP 98.1; O2SAT 90
[2025-01-16] MEDS: AUGMENTIN 875 MG TAB PO SCH (09:00)
[2025-01-16] MEDS ORDERED: AMOX875T2 PO (09:12)
[2025-01-16] MEDS: ACETAMINOPHEN 500 MG TAB PO PRN (09:18)
[2025-01-16] MEDS ORDERED: EQ S0.65 NARES (09:34)
== END 2025-01-16 09:38 | disposition home or self-care (01) ==
LOC: EDBD 13:41 → M ED 13:41 → M ED INP 13:42 → M MSPAV 21:31
PROVIDERS: ADMIT Student in an Organized Health Care Education/Training Program; ATTEND Student in an Organized Health Care Education/Training Program
DX: S02.2XXA Fracture of nasal bones, initial encounter for closed fracture (principal); S00.12XA Contusion of left eyelid and periocular area, initial encounter; S00.81XA Abrasion of other part of head, initial encounter; W01.10XA Fall on same level from slipping, tripping and stumbling with subsequent striking against unspecified object, initial encounter; Y92.511 Restaurant or cafe as the place of occurrence of the external cause; Y93.01 Activity, walking, marching and hiking; Y99.8 Other external cause status; G47.01 Insomnia due to medical condition; D72.829 Elevated white blood cell count, unspecified; R00.0 Tachycardia, unspecified; E87.1 Hypo-osmolality and hyponatremia; E88.09 Other disorders of plasma-protein metabolism, not elsewhere classified; C25.9 Malignant neoplasm of pancreas, unspecified; E11.9 Type 2 diabetes mellitus without complications; E78.5 Hyperlipidemia, unspecified; K21.9 Gastro-esophageal reflux disease without esophagitis; F41.9 Anxiety disorder, unspecified; G47.33 Obstructive sleep apnea (adult) (pediatric); J43.9 Emphysema, unspecified; Z86.711 Personal history of pulmonary embolism; Z79.84 Long term (current) use of oral hypoglycemic drugs; Z79.891 Long term (current) use of opiate analgesic; Z88.4 Allergy status to anesthetic agent; Z88.8 Allergy status to other drugs, medicaments and biological substances
CPT/HCPCS: 36415; 51701; 70450; 70486; 71045; 72125; 73130; 80048; 80053; 80076; 81001; 83605; 83735; 84145; 85025; 85027; 87040; 87086; 87486; 87581; 87633; 87798; 93041; 94760; 96374; 96375; 96376; 99285; J0295; J2543